=== PATIENT | female | born 1955 | race Caucasian/White ===

== ENCOUNTER 2020-12-25 07:40 | Outpatient (REF) | payer OTHER, SELFPAY ==
[2020-12-25 11:52] LABS: Anion Gap 13 (12-20); Blood Urea Nitrogen 12 mg/dL (9-16); Calcium 9.1 mg/dL (8.4-10.2); Carbon Dioxide 29 mmol/L (22-29); Chloride 106 mmol/L (96-108); Cholesterol 158 mg/dL; Estimated Glomerular Filt Rate > 60; Glucose Fasting 101 mg/dL (60-99); HDL Cholesterol 49 mg/dL; LDL Cholesterol Calculated 93 mg/dl; Potassium 4.2 mmol/L (3.3-5.1); Sodium 144 mmol/L (135-145); Triglycerides 81 mg/dL
== END 2020-12-25 07:41 | disposition home or self-care (01) ==
LOC: HO.HMGCLDS 07:40
PROVIDERS: PCP Internal Medicine; Visit Provider Internal Medicine
DX: I10 Essential (primary) hypertension (principal); E78.5 Hyperlipidemia, unspecified; Z78.0 Asymptomatic menopausal state
CPT/HCPCS: 36415; 80048; 80061; 82306

== ENCOUNTER 2021-02-13 12:05 | Day surgery (SDC) | payer OTHER, SELFPAY ==
--- NOTE | 2021-01-16 08:34 | ECG_ITS ---
Test Reason : ZO.818 Blood Pressure : / mmHG Vent. Rate : 058 BPM Atrial Rate : 058 BPM P-R Int : 148 ms QRS Dur : 096 ms QT Int : 440 ms P-R-T Axes : 007 -04 028 degrees QTc Int : 431 ms Sinus bradycardia Otherwise normal ECG No previous ECGs available Referred By: Sarah Lopze Electronically Signed By:YRN LUCAS
[2021-01-16 09:43] LABS: MANUAL DIFF FLAG NO
[2021-01-16 09:50] LABS: Basophils Percent Auto 0.6 % (0-2); Eosinophils Absolute Auto 0.2 X10*3/uL (0.0-0.4); Eosinophils Percent Auto 6.7 % (0-4); Hematocrit 38.1 % (37-47); Hemoglobin 12.4 g/dl (12.0-16.0); Imm Gran Abs Auto 0.01 X10*3/uL (0.00-0.03); Imm Gran Pct Auto 0.3 % (0.0-0.4); Lymphocytes Percent Auto 29.2 % (20-40); Mean Corpuscular HGB Conc 32.5 g/dl (31.0-35.0); Mean Corpuscular Hemoglobin 30.2 pg (27.0-33.0); Mean Corpuscular Volume 92.9 fL (80-98); Mean Platelet Volume 10.5 fL (9.4-12.3); Monocytes Absolute Auto 0.6 X10*3/uL (0.1-1.2); Monocytes Percent Auto 18.1 % (2-11); Neutrophils Absolute Auto 1.6 X10*3/uL (2.0-8.3); Neutrophils Percent Auto 45.1 % (45-73); Platelet Count 270 X10*3/uL (160-400); Red Cell Distribution Width 12.3 % (11.0-16.0); White Blood Count 3.4 X10*3/uL (4.8-10.8)
[2021-01-16 10:05] LABS: Anion Gap 14 (12-20); Blood Urea Nitrogen 10 mg/dL (9-16); Calcium 9.1 mg/dL (8.4-10.2); Carbon Dioxide 28 mmol/L (22-29); Chloride 105 mmol/L (96-108); Estimated Glomerular Filt Rate 59; Glucose Fasting 87 mg/dL (60-99); Potassium 4.2 mmol/L (3.3-5.1); Sodium 143 mmol/L (135-145)
--- NOTE | 2021-01-22 09:04 | HP_ITS ---
DATE OF SERVICE: 02/13/2021 DATE OF PROPOSED SURGERY: February 13, 2021. PREOPERATIVE DIAGNOSES: 1. Hallux abductovalgus, right foot. 2. Hammertoe, right second toe. 3. Tailor bunion, right 5th metatarsal. 4. Exostosis, lateral right hallux IP joint. 5. Contracture, right 2nd metatarsophalangeal joint. PLANNED PROCEDURES: 1. Gabino bunionectomy, right foot with open reduction and internal fixation. 2. Hammertoe repair, right second toe with possible K-wire fixation. 3. Partial metatarsal head resection, right 5th metatarsal. 4. Condylectomy, right hallux IP joint. 5. Extensor tenotomy and capsulotomy, right 2nd metatarsophalangeal joint. PLANNED ANESTHESIA: Either MAC or general anesthesia. CHIEF COMPLAINT AND HISTORY OF PRESENT ILLNESS: Dina Steele is a 65-year-old female, who relates history of painful bunion deformities of both great toe joint and small toe joint as well as hammertoe of 2nd toe on both feet, the right foot is more advanced than the left. She relates her painful condition has been present over the past several years. Her pain is aggravated by shoe gear and walking activity. Conservative treatment consisting of altered shoe gear as well as orthotics and accommodative padding has proven ineffective and the patient is now requesting surgical treatment. PAST MEDICAL HISTORY: Remarkable for depression, arthritis. CURRENT MEDICATIONS: The patient takes Abilify, Lamictal, Lexapro, meloxicam, Wellbutrin, hydrochlorothiazide. ALLERGIES: THE PATIENT HAS NEGATIVE REACTION TO BOTH DOXYCYCLINE AND DEMEROL. FAMILY HISTORY: Significant for arthritis. SOCIAL HISTORY: The patient denies smoking, relates rare alcohol consumption and drinks more than 4 cups coffee per day. The patient denies use of any recreational drugs. PHYSICAL EXAMINATION: PODIATRIC PHYSICAL EXAMINATION: VASCULAR EXAM: The patient displays +2/4 pulses. DP and PT arteries bilateral with normal cap refill time noted bilateral feet. DERMATOLOGIC EXAM: The patient has intact skin. The patient does have a keratosis of the medial aspect of the right second toe proximal interphalangeal joint. ORTHOPEDIC EXAM: Reveals excess pronation, bilateral feet, bunion deformities involving both the first metatarsophalangeal joint and 5th metatarsophalangeal joint, bilateral feet. The patient also displays hammertoe contracture, bilateral, the right second toe being the more advanced with medial subluxation at the level of the metatarsophalangeal joint, 2nd metatarsal due to contracture. NEUROLOGIC EXAM: Reveals intact sensation. The patient was seen most recently in my office on January 21, 2021. The patient has been described of all potential risks and complications and is compliant with her planned right foot surgery. Preoperative informed consent has been obtained from the patient. Preoperative medical clearance will be provided by her primary care physician, Dr. Lopez. MEGGAN Lawrence/REI / [id number]
[2021-02-10 14:00] VITALS: BMI 24.5
--- NOTE | 2021-02-11 10:45 | P.CONAN_ITS ---
Documented by User: Sri Loaiza 02/11/21 10:47 HPI - Anesthesia Eval Consult details Narrative: 65yo F for R Foot Surgery PCP cleared [facility] Active Problems Active Problems: All Active Problems (Updated 02/10/21 @ 14:02 by Zayra Avila) Consumes a vegan diet (Acute) Osteoarthritis, knee (Acute) Bipolar disorder with depression (Acute) Menopause (Acute) Hyperlipidemia (Acute) Past Medical History Medical History Bipolar disorder with depression Consumes a vegan diet COVID-19 vaccine administered Dysfunctional uterine bleeding Hyperlipidemia Impaired fasting glucose Menopause Nephrolithiasis Osteoarthritis, knee Positive serology for Erlichiosis Tear of lateral meniscus of left knee Family History Family History Father No problems noted. Mother Alzheimer disease Maternal Grandmother Alzheimer disease Paternal Grandmother Stroke Brother Hyperlipemia Depression FH: mental illness Surgical History Surgical History H/O colonoscopy H/O right knee surgery Hx of total knee arthroplasty Hx of ventral hernia repair Status post shoulder surgery Social History Social History Are you a primary anesthesiologist and critical care to a significant other at home: No Do you presently have visiting nurse or other home services: No Smoking Status: Never smoker Use of substances other than those prescribed or required for medical reasons: No Have you been hit, kicked, punched, or otherwise hurt by someone within the past year? If so, by whom?: No Advance Directives: Yes Advance Directives Information Provided: Yes Advance Directives on File: Yes Advance Directives Date on File: 07/09/20 Recently lost weight without trying: No Eating poorly because of decreased appetite: No Nutrition Risks: No Nutritional Risk Poor oral hygiene: No Meds Allergies Allergy/AdvReac Type Severity Reaction Status Date / Time doxycycline Allergy Severe Nausea and Verified 02/10/21 13:58 Vomiting meperidine AdvReac Severe vomiting Verified 02/10/21 13:58 Home Medications Medication Instructions Recorded Confirmed Last Taken Type docusate sodium 100 mg tablet 100 mg PO BID tab 07/09/20 02/10/21 Unknown History multivitamin 1 tab PO DAILY 07/09/20 02/10/21 Unknown History aripiprazole 10 mg tablet 5 mg PO DAILY tab 01/01/21 02/10/21 Unknown History bupropion HCl 150 mg 24 hr tablet, 450 mg PO QAM 01/01/21 02/10/21 Unknown History extended release cholecalciferol (vitamin D3) 50 50 mcg PO DAILY 01/01/21 02/10/21 Unknown History mcg (2,000 unit) capsule escitalopram oxalate 20 mg tablet See Rx Instructions PO DAILY 01/01/21 02/10/21 Unknown History lamotrigine 200 mg tablet 200 mg PO QAM tab 01/01/21 02/10/21 Unknown History omega-3 fatty acids 500 mg capsule 500 mg PO DAILY 01/01/21 02/10/21 Unknown History vitamin B complex 1 tab PO DAILY 01/01/21 02/10/21 Unknown History lamotrigine 100 mg PO QPM 02/10/21 02/10/21 Unknown History Exam Exam Date and Time: February 11, 2021 1045 Height,Weight and Vital Signs: Height 5 ft 4.5 in Weight 65.771 kg Pertinent Lab Results Pertinent Lab Results: Laboratory Tests 01/16/21 01/16/21 08:35 08:35 WBC 3.4 L RBC 4.10 L Hgb 12.4 Hct 38.1 MCV 92.9 MCH 30.2 MCHC 32.5 RDW 12.3 Plt Count 270 MPV 10.5 Immature Gran % (Auto) 0.3 Neut % (Auto) 45.1 Lymph % (Auto) 29.2 [place] % (Auto) 18.1 H Eos % (Auto) 6.7 H Baso % (Auto) 0.6 Lymph # (Auto) 1.0 L [place] # (Auto) 0.6 Eos # (Auto) 0.2 Baso # (Auto) 0.0 Abs Immat Gran (auto) 0.01 Absolute Neuts (auto) 1.6 L Absolute Nucleated RBC 0.000 Nucleated RBC % (auto) 0.0 Sodium 143 Potassium 4.2 Chloride 105 Carbon Dioxide 28 Anion Gap 14 BUN 10 Creatinine 0.95 Estim Creat Clear Calc TNP Estimated GFR 59 Fasting Glucose 87 Calcium 9.1 Narrative Narrative: EKG 01/2021 Vent. Rate : 058 BPM Atrial Rate : 058 BPM P-R Int : 148 ms QRS Dur : 096 ms QT Int : 440 ms P-R-T Axes : 007 -04 028 degrees QTc Int : 431 ms Sinus bradycardia Otherwise normal ECG No previous ECGs available Assessment and Plan Assessment Anesthesia Assessment: Chart Reviewed Documented by User: Nimisha Stearns 02/13/21 13:17 PMF Past Medical History Medical History Bipolar disorder with depression Consumes a vegan diet COVID-19 vaccine administered Dysfunctional uterine bleeding Hyperlipidemia Impaired fasting glucose Menopause Nephrolithiasis Osteoarthritis, knee Positive serology for Erlichiosis Tear of lateral meniscus of left knee Family History Family History Father No problems noted. Mother Alzheimer disease Maternal Grandmother Alzheimer disease Paternal Grandmother Stroke Brother Hyperlipemia Depression FH: mental illness Surgical History Surgical History H/O colonoscopy H/O right knee surgery Hx of total knee arthroplasty Hx of ventral hernia repair Status post shoulder surgery Social History Social History Are you a primary anesthesiologist and critical care to a significant other at home: No Do you presently have visiting nurse or other home services: No Smoking Status: Never smoker Use of substances other than those prescribed or required for medical reasons: No Have you been hit, kicked, punched, or otherwise hurt by someone within the past year? If so, by whom?: No Advance Directives: Yes Advance Directives Information Provided: Yes Advance Directives on File: Yes Advance Directives Date on File: 07/09/20 Recently lost weight without trying: No Eating poorly because of decreased appetite: No Nutrition Risks: No Nutritional Risk Poor oral hygiene: No Meds Allergies Allergy/AdvReac Type Severity Reaction Status Date / Time doxycycline Allergy Severe Nausea and Verified 02/10/21 13:58 Vomiting meperidine AdvReac Severe vomiting Verified 02/10/21 13:58 Home Medications Medication Instructions Recorded Confirmed Last Taken Type docusate sodium 100 mg tablet 100 mg PO BID tab 07/09/20 02/10/21 Unknown History multivitamin 1 tab PO DAILY 07/09/20 02/10/21 Unknown History aripiprazole 10 mg tablet 5 mg PO DAILY tab 01/01/21 02/10/21 Unknown History bupropion HCl 150 mg 24 hr tablet, 450 mg PO QAM 01/01/21 02/10/21 Unknown History extended release cholecalciferol (vitamin D3) 50 50 mcg PO DAILY 01/01/21 02/10/21 Unknown History mcg (2,000 unit) capsule escitalopram oxalate 20 mg tablet See Rx Instructions PO DAILY 01/01/21 02/10/21 Unknown History lamotrigine 200 mg tablet 200 mg PO QAM tab 01/01/21 02/10/21 Unknown History omega-3 fatty acids 500 mg capsule 500 mg PO DAILY 01/01/21 02/10/21 Unknown History vitamin B complex 1 tab PO DAILY 01/01/21 02/10/21 Unknown History lamotrigine 100 mg PO QPM 02/10/21 02/10/21 Unknown History Exam Airway Mallampati Class: I TM Dist: >3cm Neck ROM: Full Heart: RRR Lungs: CTA Assessment and Plan Assessment Anesthesia Assessment: Anesthesia Plan Discussed and Chart Reviewed Final Anesthetic Review NPO: Yes ASA Class: II Final Preanesthetic Review: Meds/Allgs Chart Reviewed, Consent Obtained/Reviewed and Anes Risks/Benef Reviewed Patient Risk: Low Procedure Risk: Low Anesthetic Plan Anesthetic Plan: MAC: Disposition: Standard PACU
[2021-02-13] VITALS (7 sets, daily range): BP systolic 115–148; BP diastolic 32–86; PULSE 69–81; RESP 16–19; TEMP 36.1–36.6; O2SAT 97–100
--- NOTE | ~2021-02-13 | FL_ITS ---
EXAMINATION: XR FLUOROSCOPY WITH IMAGES CLINICAL INFORMATION: Bunion. COMPARISON: None. TECHNIQUE: Fluoroscopy performed by Luis Terrazas DPM. Fluoroscopy time: 3 seconds. Total dose: 2547 uGycm2 Images: 1 FINDINGS: Patient is status post osteotomy distal shaft first metatarsal, fixed with 2 screws. There is a metallic pin along long axis second toe, tip overlying 2nd metatarsal head. FL/FL guidance in OR IMPRESSION: Fluoroscopy for podiatric surgery.
[2021-02-13] MEDS: Lactated Ringers 1,000 ML 100 ML IVCONT (12:55)
--- NOTE | 2021-02-13 13:17 | MHC.SHP ---
Pre-Procedural Eval Section B Chief Complaint: hallux,hammer toe,bunionette Allergies: Allergies Allergy/AdvReac Type Severity Reaction Status Date / Time doxycycline Allergy Severe Nausea and Verified 02/10/21 13:58 Vomiting meperidine AdvReac Severe vomiting Verified 02/10/21 13:58 Plan I have reviewed the history and physical and performed a pertinent physical examination on my patient. No changes have occurred unless specified.
--- NOTE | 2021-02-13 14:56 | PM.PROC ---
Brief Operative Note Date of procedure: 02/13/21 Pre-op diagnosis: hallux valgus, hammertoe 2nd, tailor bunion, exostosis hallux, sublux right Post-op diagnosis: same Procedure: marco bunionectomy with orif right, hammertoe repair right 2nd, condylectomy right hallux ipj, partial metatarsal head resection 5th and tenotomy and capsulotomy right 2nd mtpj Anesthesia: GLMA Surgeon: Luis Terrazas Commercial Sales Representative: Jolene Mariscal Estimated blood loss (mL): 4.0 Condition: stable Disposition: PACU
--- NOTE | 2021-02-13 16:15 | PC.NURSE ---
1600 AWAKE ALERT PREP FOR DC MONITORS AND IVF DCD ASST W LOWER HALF CLOTHING CHANGE, PT FIT W MENS LARGE ORTHO SHOE, ASST OOB TO WC USING WALKER DDEMONSTRATES GOOD AMB AND TECHNIQUE PARTIAL WEIGHT BEAR R, TO PT COMPLETED CLOTHING CHANGE TO BE DCD FROM PACU
--- NOTE | 2021-02-13 17:40 | OP_ITS ---
SURGEON: Luis Terrazas DPM PREOPERATIVE DIAGNOSIS: POSTOPERATIVE DIAGNOSIS: PROCEDURE PERFORMED: ESTIMATED BLOOD LOSS: COMPLICATIONS: ANESTHESIA: Consisted of local administration of a total of 24 mL of an equal mix of 2% lidocaine with epinephrine 1:100,000 and 0.5% Marcaine plain. Intravenous sedation was provided by the anesthesia department and prior to the start of procedure due to excessive patient movement, the patient was converted to general endotracheal anesthesia. ANESTHESIOLOGIST: Dr. Anti.Dr. Stearns. ASSISTANTS: Dr. Mariscal. SPECIMENS: PREOPERATIVE DIAGNOSES: 1. Hallux abductovalgus, right foot. 2. Hammertoe, right second toe. 3. Tailor bunion, right 5th metatarsal. 4. Exostosis, lateral right hallux IP joint. 5. Subluxation/contracture, right 2nd metatarsophalangeal joint. POSTOPERATIVE DIAGNOSES: 1. Hallux abductovalgus, right foot. 2. Hammertoe, right second toe. 3. Tailor bunion, right 5th metatarsal. 4. Exostosis, lateral right hallux IP joint. 5. Subluxation/contracture, right 2nd metatarsophalangeal joint. PROCEDURES PERFORMED: 1. Bernadine bunionectomy with open reduction and internal fixation of right foot. 2. Hammertoe repair, right second toe with 0.054-inch K-wire fixation. 3. Partial metatarsal head resection, right 5th metatarsal. 4. Condylectomy, right hallux interphalangeal joint. 5. Extensor tenotomy and capsulotomy of the right 2nd metatarsophalangeal joint. INTRODUCTION: The patient was brought to the operating room, placed on the operative table in the supine position. After having been suitably anesthetized with local infiltrative anesthesia, the right lower extremity was then prepped and draped in the usual sterile manner. Please note that prior to start of the procedures, the right foot was exsanguinated utilizing Esmarch bandage and right ankle tourniquet was inflated to 250 mmHg pressure for the duration of the procedures. BERNADINE BUNIONECTOMY WITH OPEN REDUCTION AND INTERNAL FIXATION, RIGHT FOOT. Attention was directed to the dorsum of the right first metatarsophalangeal joint, where an incision approximately 7 cm in length was effected, centered over the dorsum of the right first metatarsophalangeal joint. The incision was deepened in same plane and hemostasis was acquired as necessary. The skin margins were underscored and retracted. A dorsal linear capsule incision was then effected and the capsule and periosteum were underscored and retracted. The hypertrophic medial eminence of the first metatarsal head was resected. The first intermetatarsal space was exposed via blunt and sharp dissection and a lateral capsulotomy and adductor tenotomy performed via sharp dissection. Attention was directed back to the medial aspect of first metatarsal head, where a modified V osteotomy was carried out with the short arm being placed plantarly, the long arm being placed dorsally. The capital fragment was then shifted laterally. Once the osteotomy was complete and impacted upon the bone in the correct position and then fixated utilizing 2 of the Lamont cannulated screws each measuring 3.0 mm in diameter and 17 mm in length. The 2-screw fixation was orientated perpendicular to the dorsal wing of the osteotomy and was found to give excellent interfragmental compression of the osteotomy. The redundant bone was resected utilizing sagittal saw. The wound was irrigated. The capsule was closed with 3-0 Vicryl. One half of 3 x 4 cm AmnioFix was placed inside the capsule during closure. The subcutaneous tissue was closed with 4-0 Maxon. One quarter of the AmnioFix was placed in the subcutaneous tissue during closure. The Section ZipLine sterile closure was then applied over the midline of the incision. CONDYLECTOMY, RIGHT HALLUX INTERPHALANGEAL JOINT. Attention was now directed to the dorsal lateral aspect of the right hallux interphalangeal joint, where an incision mildly curvilinear was effected just dorsal to exostosis at the base of the distal phalanx lateral aspect of the great toe. Incision was carried down to bone and the capsule and periosteum were underscored utilizing a sagittal saw, the hypertrophic lateral eminence of the base of the distal phalanx was resected. Then utilizing a power drill, the remaining bone was rasped smooth. The wound was irrigated. Skin was closed with 4-0 nylon. PARTIAL METATARSAL HEAD RESECTION, RIGHT 5TH METATARSAL. Attention was now directed to the dorsum of the right 5th metatarsophalangeal joint, where an incision approximately 4 cm in length was effected from the distal shaft up to and just beyond the 5th metatarsophalangeal joint. Incision was deepened in the same plane. Hemostasis was acquired. Dorsal linear capsule incision was then effected. Capsule and periosteum were underscored and retracted. The hypertrophic lateral eminence of the 5th metatarsal head was resected utilizing sagittal saw. The wound was irrigated. The capsule was closed with 3-0 Vicryl and the last portion of AmnioFix was placed inside the capsule during closure. The skin margins were closed with 4-0 nylon. HAMMERTOE REPAIR OF RIGHT SECOND TOE WITH A CAPSULOTOMY RIGHT 2ND METATARSOPHALANGEAL JOINT. Attention was directed to the dorsum of the right second toe, where an incision was effected from the distal shaft and head of the 2nd metatarsal up to just distal to the proximal interphalangeal joint. The incision was deepened and hemostasis was acquired. Skin margins were underscored and retracted. A transverse incision was effected through the extensor tendon complex at the level of the proximal interphalangeal joint. The extensor tendon was underscored and retracted. The hypertrophic head of the proximal phalanx was excised utilizing sagittal saw. Attention was now directed to the dorsal and medial aspect of the 2nd metatarsophalangeal joint, where a dorsal and medial capsulotomy was performed via sharp dissection. A McGlamry elevator was introduced to release the medial subluxation of the right 2nd metatarsophalangeal joint. A 0.054-inch K-wire was then driven through the phalanges and then into the metatarsal head. Utilizing mini C-arm fluoroscopic visualization, the excess K-wire was bent, cut, and capped. Extensor tendon was caught to maintain as well as capsule closed with 3-0 Vicryl. Skin margins were closed with 4-0 nylon. CONCLUSION: At the conclusion of these procedures, the operative sites were injected with a total of 5 mL of Marcaine 0.5% plain and 1 mL of dexamethasone phosphate. Sterile Betadine-soaked gauze as well as a 2-inch Conform, sterile Kerlix fluffs, and 4-inch Conform were applied to the right lower extremity. The right ankle tourniquet was deflated and normal blood flow was reestablished to the right lower extremity. The patient tolerated the surgery and anesthesia well and left the operating room via cart to the recovery room with vital signs stable. FINAL DISPOSITION: The patient is discharged home with instructions for self-care and include the followin. To keep the dressings dry, clean, and intact. 2. To keep the right leg elevated with ice above the ankle. 3. Take all medications as prescribed. 4. To limit activity to minimum. 5. To always use surgical shoe and walker when ambulating, partial weightbearing, or nonweightbearing the right lower extremity. 6. The patient has prescriptions for Motrin 800 mg total number 90, one p.o. t.i.d. p.c. The patient will also be taking Tylenol in addition to the Motrin p.r.n. pain and gabapentin 300 mg total number of 10, sig 1 p.o. daily at bedtime. MEGGAN Lawrence/REI / [id number]
== END 2021-02-13 16:20 ==
LOC: HO.SSS 12:06
PROVIDERS: PCP Internal Medicine; Visit Provider Podiatrist
PROC: (CPT 28292; principal; 2021-02-13 13:50)
PROC: (CPT 28285; 2021-02-13 13:50)
PROC: (CPT 21050; 2021-02-13 13:50)
DX: M20.11 Hallux valgus (acquired), right foot (principal); M21.621 Bunionette of right foot; M20.41 Other hammer toe(s) (acquired), right foot; M89.8X7 Other specified disorders of bone, ankle and foot; I10 Essential (primary) hypertension
CPT/HCPCS: 28296; 28285; 28110; 36415; 80048; 85025; 88304; 88311; 93005; C1713; J0690; J1100; J2250; J2405; J3010; J3590

== ENCOUNTER 2021-08-13 07:10 | Outpatient (REF) | payer OTHER, SELFPAY ==
[2021-08-13 11:49] LABS: Estimated Average Glucose 103 mg/dL; Hemoglobin A1c % 5.2 %
[2021-08-13 12:11] LABS: Vitamin D 25-OH Total 65.7 ng/mL (>30)
[2021-08-13 12:15] LABS: Vitamin B12 1422 pg/mL (200-900)
[2021-08-13 12:20] LABS: Alanine Aminotransferase 24 U/L (0-31); Albumin Level 4.1 g/dL (3.5-5.0); Alkaline Phosphatase 75 U/L (39-117); Anion Gap 12 (12-20); Aspartate Amino Transferase 24 U/L (5-31); Bilirubin Total 0.3 mg/dL (0.0-1.0); Blood Urea Nitrogen 11 mg/dL (9-16); Calcium 9.4 mg/dL (8.4-10.2); Carbon Dioxide 28 mmol/L (22-29); Chloride 106 mmol/L (96-108); Cholesterol 181 mg/dL; Estimated Glomerular Filt Rate > 60; Glucose Fasting 97 mg/dL (60-99); HDL Cholesterol 59 mg/dL; LDL Cholesterol Calculated 104 mg/dl; Potassium 4.1 mmol/L (3.3-5.1); Sodium 142 mmol/L (135-145); Total Protein 6.7 g/dL (6.5-8.0); Triglycerides 94 mg/dL
== END 2021-08-13 07:11 | disposition home or self-care (01) ==
LOC: HO.HMGCLDS 07:10
PROVIDERS: PCP Internal Medicine; Visit Provider Psychiatry & Neurology Psychiatry
DX: F31.9 Bipolar disorder, unspecified (principal)
CPT/HCPCS: 36415; 80053; 80061; 82306; 82607; 83036

== ENCOUNTER 2022-08-17 07:46 | Outpatient (REF) | payer OTHER, SELFPAY ==
[2022-08-17 11:29] LABS: MANUAL DIFF FLAG NO
[2022-08-17 11:43] LABS: Eosinophils Absolute Auto 0.1 X10*3/uL (0.0-0.4); Eosinophils Percent Auto 2.3 % (0-4); Hematocrit 38.4 % (37.0-47.0); Hemoglobin 12.6 g/dl (12.0-16.0); Imm Gran Abs Auto 0.01 X10*3/uL (0.00-0.03); Imm Gran Pct Auto 0.3 % (0.0-0.4); Lymphocytes Absolute Auto 1.2 X10*3/uL (1.2-4.9); Lymphocytes Percent Auto 30.9 % (20-40); Mean Corpuscular HGB Conc 32.8 g/dl (31.0-35.0); Mean Corpuscular Hemoglobin 30.6 pg (27.0-33.0); Mean Corpuscular Volume 93.2 fL (80.0-98.0); Mean Platelet Volume 10.6 fL (9.4-12.3); Monocytes Absolute Auto 0.5 X10*3/uL (0.1-1.2); Monocytes Percent Auto 12.2 % (2-11); Neutrophils Absolute Auto 2.1 x10*3/uL (2.0-8.3); Neutrophils Percent Auto 53.3 % (45-73); Platelet Count 311 X10*3/uL (160-400); Red Blood Count 4.12 X10*6/uL (4.20-5.50); Red Cell Distribution Width 12.3 % (11.0-16.0); White Blood Count 3.9 X10*3/uL (4.8-10.8)
[2022-08-17 11:50] LABS: Estimated Average Glucose 100 mg/dL; Hemoglobin A1C 103.9966 umol/L; Hemoglobin A1c % 5.1 %
[2022-08-17 12:24] LABS: Thyroid Stimulating Hormone 0.73 uIU/mL (0.32-4.0)
[2022-08-17 12:34] LABS: Alanine Aminotransferase 12 U/L (0-31); Albumin Level 4.3 g/dL (3.5-5.0); Alkaline Phosphatase 74 U/L (39-117); Anion Gap 14 (12-20); Aspartate Amino Transferase 15 U/L (5-31); Bilirubin Total 0.4 mg/dL (0.0-1.0); Blood Urea Nitrogen 13 mg/dL (9-16); Calcium 9.4 mg/dL (8.4-10.2); Carbon Dioxide 28 mmol/L (22-29); Chloride 106 mmol/L (96-108); Cholesterol 200 mg/dL; Estimated Glomerular Filt Rate 53; Glucose Fasting 95 mg/dL (60-99); HDL Cholesterol 61 mg/dL; LDL Cholesterol Calculated 126 mg/dl; Potassium 4.1 mmol/L (3.3-5.1); Sodium 144 mmol/L (135-145); Total Protein 6.9 g/dL (6.5-8.0); Triglycerides 65 mg/dL
== END 2022-08-17 07:47 | disposition home or self-care (01) ==
LOC: HO.HMGCLDS 07:46
PROVIDERS: PCP Internal Medicine; Visit Provider Psychiatry & Neurology Psychiatry
DX: F31.32 Bipolar disorder, current episode depressed, moderate (principal)
CPT/HCPCS: 36415; 80053; 80061; 82947; 83036; 84443; 85025

== ENCOUNTER 2023-09-23 07:22 | Outpatient (REF) | payer MEDICARE, OTHER, SELFPAY ==
[2023-09-23 12:08] LABS: Alanine Aminotransferase 12 U/L (0-31); Anion Gap 11 (12-20); Aspartate Amino Transferase 18 U/L (5-31); Blood Urea Nitrogen 15 mg/dL (9-16); Carbon Dioxide 27 mmol/L (22-29); Chloride 107 mmol/L (96-108); Cholesterol 233 mg/dL (<200); Estimated Glomerular Filt Rate 60; Glucose Fasting 92 mg/dL (60-99); HDL Cholesterol 69 mg/dL (>40); LDL Cholesterol Calculated 151 mg/dL (<100); Potassium 3.8 mmol/L (3.3-5.1); Sodium 141 mmol/L (135-145); Triglycerides 65 mg/dL (<150)
[2023-09-23 12:39] LABS: Folate 13.7 ng/mL (> or = 4.0); Vitamin B12 407 pg/mL (200-900)
== END 2023-09-23 07:23 | disposition home or self-care (01) ==
LOC: HO.HMGCLDS 07:22
PROVIDERS: PCP Internal Medicine; Visit Provider Internal Medicine
DX: Z00.01 Encounter for general adult medical examination with abnormal findings (principal); R74.8 Abnormal levels of other serum enzymes; F31.9 Bipolar disorder, unspecified; Z78.0 Asymptomatic menopausal state; R73.01 Impaired fasting glucose; Z78.9 Other specified health status
CPT/HCPCS: 36415; 80048; 80061; 82306; 82607; 82746; 84450; 84460

== ENCOUNTER 2023-11-02 10:25 | Outpatient (AMB) | payer MEDICARE, OTHER, SELFPAY ==
--- NOTE | 2023-11-02 10:32 | AM.OFFWIN_ITS ---
Intake Vital Signs 11/02/23 10:36 Height 5 ft 5 in Weight 68.946 kg BMI 25.3 BP 122/70 Blood Pressure Location Rt brachial Position Sitting Pulse 70 Pulse Source Pulse Oximeter Temp 98.6 F Temp Source Oral Pulse Oximetry (%) 97 Oxygen Delivery Method Room Air Intake Visit Reasons: EST/dizziness(lobby masked) Intake Note: Pt is here c/o dizziness for over one week. Pt states no falls or injuries prior to feeling vertigo. Patient Tobacco Use Status: Never used Tobacco Allergies doxycycline Allergy (Severe, Verified 11/02/23 10:39) Nausea and Vomiting meperidine Adverse Reaction (Severe, Verified 11/02/23 10:39) vomiting Do you need a note to return to daycare/school/sports/work: No HPI HPI Comments History of Present Illness Details 68-year-old female history of tardive dy skinesia, osteopenia, impaired fasting glucose, bipolar, menopause, hyperlipidemia presenting for evaluation of dizziness for the past week or so worsening. Patient was recently taking Austedo and stopped it about a week or two ago psychiatrist aware. Patient reports shes not dizzy right now and dizziness mostly occurs with positional changes. She reports she stands up quickly or if she lays down in bed too quickly she gets dizziness. Denies headache, vision changes, weakness, nausea, vomiting, diarrhea, abdominal pain, chest pain shortness of breath Physical exam benign. NIH stroke scale 0. Cerebellar function intact This is likely BPPV versus orthostatic dizziness versus vertigo. Unlikely many years. This also could be side effect of discontinuation of the medication. Unlikely stroke, posterior stroke, intracranial hemorrhage. No signs of neurological deficits Plan at this time meclizine. Will reach out to patient's psychiatric provider to inform her of these changes and to see if patient can follow-up with her for med adjustment. In Educated patient on diagnosis and treatment plan, answered all question, patient verbalizes understanding. At this time patient will be discharged home, advised to return with new or worsening symptoms. Educated on worrisome signs and symptoms and when to return. At this time I feel comfortable discharge home. [facility] Medical History Tardive dyskinesia Nasal bone fracture Deviated nasal septum Trochanteric bursitis, right hip Osteopenia of right femoral neck COVID-19 vaccine administered Consumes a vegan diet Positive serology for Erlichiosis Impaired fasting glucose Tear of lateral meniscus of left knee Dysfunctional uterine bleeding Osteoarthritis, knee Bipolar disorder with depression Nephrolithiasis Menopause Hyperlipidemia Surgical History Status post arthroscopy of right shoulder Hx of ventral hernia repair H/O colonoscopy Status post shoulder surgery Hx of total knee arthroplasty H/O right knee surgery Family History Father No problems noted. Mother Alzheimer disease Maternal Grandmother Alzheimer disease Paternal Grandmother Stroke Brother Hyperlipemia Depression FH: mental illness Social History Are you a primary ambulatory care coordinator to a significant other at home: No Do you presently have visiting nurse or other home services: No Patient Tobacco Use Status: Never used Tobacco e-Cigarette/Vaping Use: Never Used Advance Directives Date on File: 07/09/20 service: No Current occupational status: retired Cognitive needs: No Vision needs: Yes Review of Systems Const All systems reviewed & are unremarkable except as noted in HPI and below Physical Exam Vital Signs: No signs stable Appearance: Alert.? Oriented X3.? No acute distress.? Head: Normocephalic, atraumatic, no step-offs or deformities Eyes: Pupils equal, round and reactive to light. CVS: Normal heart rate and rhythm.? Pulses normal.? Respiratory: No respiratory distress.? Breath sounds normal.? Skin: Skin warm and dry.? Normal skin color.? Normal skin turgor.? Extremities: No lower extremity edema.? No calf ttp. 5/5 strength to bilateral upper and lower extremities Back: No midline tenderness, no C-spine tenderness, full range of motion, no CVA tenderness bilaterally Neuro: Oriented X 3.? No motor deficit.? No sensory deficit. CN 2-12 intact . Normal [id number], [id number] steady tandem gait normal coordination negative Romberg and pronator drift Assessment & Plan Assessment & Plan (1) Vertigo: Code(s): R42 - Dizziness and giddiness Plan Take your medications as prescribed. If you were prescribed antibiotics today, it is important that you take your medication to their entirety, do not skip any doses, do not finish them early. Follow-up with your primary care provider this week. Return to the emergency department with new or worsening symptoms. Such as fevers, chills, chest pain, shortness of breath, nausea, vomiting, dizziness, headache, vision changes, lethargy In case of emergency call 911 Slow movements please. Do not change position quickly. Medications: New meclizine 25 mg PO BID PRN 30 tabs 0RF dizziness Coding Level of Care Code Est Pt Level 3 (72498) Diagnoses Vertigo R42
[2023-11-02 10:36] VITALS: BP 122/70; PULSE 70; TEMP 37; O2SAT 97; BMI 25.3
== END 2023-11-02 11:32 | disposition home or self-care (01) ==
PROVIDERS: PCP Internal Medicine; Visit Provider Physician Assistant
DX: R42 Dizziness and giddiness (principal); F31.9 Bipolar disorder, unspecified
CPT/HCPCS: 99213

== ENCOUNTER 2024-03-02 09:05 | Outpatient (REF) | payer MEDICARE, OTHER, SELFPAY ==
[2024-03-02 11:03] LABS: Alanine Aminotransferase 18 U/L (0-31); Aspartate Amino Transferase 19 U/L (5-31); Cholesterol 212 mg/dL (<200); Glucose Fasting 91 mg/dL (60-99); HDL Cholesterol 66 mg/dL (>40); LDL Cholesterol Calculated 134 mg/dL (<100); Triglycerides 63 mg/dL (<150)
[2024-03-02 11:36] LABS: Folate 13.9 ng/mL (> or = 4.0); Vitamin B12 555 pg/mL (200-900)
== END 2024-03-02 09:06 | disposition home or self-care (01) ==
LOC: HO.HMGCLDS 09:05
PROVIDERS: PCP Internal Medicine; Visit Provider Internal Medicine
DX: E78.00 Pure hypercholesterolemia, unspecified (principal); Z78.0 Asymptomatic menopausal state; R73.01 Impaired fasting glucose; M85.851 Other specified disorders of bone density and structure, right thigh; Z78.9 Other specified health status
CPT/HCPCS: 36415; 80061; 82306; 82607; 82746; 82947; 84450; 84460

== ENCOUNTER 2024-03-06 08:42 | Outpatient (AMB) | payer MEDICARE, OTHER, SELFPAY ==
--- NOTE | 2024-03-06 08:32 | MHC.PC.OV ---
Vital Signs 03/06/24 08:45 Height 5 ft 5 in Weight 155 lb 2 oz BMI 25.8 BP 135/80 Blood Pressure Location Lt brachial Position Sitting Pulse 66 Pulse Source Pulse Oximeter Pulse Oximetry (%) 97 Oxygen Delivery Method Room Air Intake Visit Reasons: PE/secondary covers annual Intake Note: Pt is here today for her Annual PE Last mammogram 07/27/22 Last Bone density 05/30/20 Last colonoscopy 09/25/20 Last flu shot 06/23/21 Allergies doxycycline Allergy (Severe, Verified 08/02/24 23:10) Nausea and Vomiting meperidine Adverse Reaction (Severe, Verified 08/02/24 23:10) vomiting tramadol Adverse Reaction (Verified 08/02/24 23:10) Hallucinations Medication List - Last Reconciled 03/06/24 by Sarah Lopez MD aripiprazole 5 mg PO DAILY azelastine 2 sprays intranasal BID bupropion HCl XL 450 mg PO QAM escitalopram oxalate (Lexapro) 1 tab daily PO daily; escitalopram oxalate 10 mg PO DAILY lamotrigine 100 mg PO QPM lamotrigine 200 mg PO QAM omeprazole 20 mg PO DAILY polyethylene glycol 3350 (Miralax) 17 grams PO DAILY Tobacco use date assessed: 03/06/24 Fall risk assessment: 1 Fall in past year (09/2023) Last assessed Fall Risk: 03/06/24 Dental Screening Dental Screen Date: 03/06/24 Did you have a dental visit in the last 12 months?: Yes Did you have a dental problem in the last 6 months where you did not have access to dental care?: No Was dental information given to patient?: Patient has dentist HPI PE/secondary covers annual HPI Details 68-year-old lady with history of bipolar disorder currently followed by Dr.Graham Antonio , has osteopenia in her right femoral neck and right hip, , here today for her physical exam. She sees Dr. Porter, who orders her screening mammogram and bone density scan last done 07/28/23 at [facility]. She had a screening colonoscopy done last year at [facility], copy of results requested today. She has been diagnosed to have parkinsonism , aripiprazole induced, seen by Dr. Santa, , improved with reduction of dose. She is up-to-date with all her vaccinations, except for the RSV vaccine. She would recent fasting labs done which showed normal fasting glucose, liver enzymes, and improved lipid panel as compared to last year [facility] Medical History History of nephrolithiasis History of fracture of nasal bone Parkinsonism Gait instability Tardive dyskinesia Deviated nasal septum Trochanteric bursitis, right hip Osteopenia of right femoral neck COVID-19 vaccine administered Consumes a vegan diet Positive serology for Erlichiosis Impaired fasting glucose Tear of lateral meniscus of left knee Dysfunctional uterine bleeding Osteoarthritis, knee Bipolar disorder with depression Nephrolithiasis Menopause Hyperlipidemia Surgical History Status post arthroscopy of right shoulder Hx of ventral hernia repair H/O colonoscopy Status post shoulder surgery Hx of total knee arthroplasty H/O right knee surgery Family History Father No problems noted. Mother Alzheimer disease Maternal Grandmother Alzheimer disease Paternal Grandmother Stroke Brother Hyperlipemia Depression FH: mental illness Social History Are you a primary healthcare applications analyst to a significant other at home: No Do you presently have visiting nurse or other home services: No Alcohol intake: never Patient Tobacco Use Status: Never used Tobacco e-Cigarette/Vaping Use: Never Used Advance Directives Date on File: 08/27/20 service: No Current occupational status: retired Cognitive needs: No Hearing needs: No Vision needs: Yes Questionnaire PHQ-9 Over the last 2 weeks, how often have you been bothered by any of the following problems? 1. Little interest or pleasure in doing things: not at all 2. Feeling down, depressed, or hopeless: not at all 3. Trouble falling or staying asleep, or sleeping too much: not at all 4. Feeling tired or having little energy: not at all 5. Poor appetite or overeating: not at all 6. Feeling bad about yourself - or that you are a failure or have let yourself or your family down: not at all 7. Trouble concentrating on things, such as reading the newspaper or watching television: not at all 8. Moving or speaking so slowly that other people could have noticed. Or the opposite - being so fidgety or restless that you have been moving around a lot more than usual: not at all 9. Thoughts that you would be better off or of hurting yourself in some way: not at all Total score: 0 Depression Screening Interpretation: Negative (Controlled with current treatment, sees Dr. Pricilla Neri) Depression Screening Done: Yes 09996 - PHQ-9 Billing: Yes Source: Developed by Drs. Jamie Garrett, Shonda Watkins, Oumar Carrillo and colleagues, with an educational tarik from [employer]. Thrive Questionnaire Date Thrive assessed: 03/06/24 I am a: Patient What is your living situation today?: I have a steady place to live Within the past 12 months, did the food you bought not last and you didn't have the money to get more?: Never true Within the past 12 months, did you worry whether your food would run out before you got money to buy more?: Never true Do you have trouble paying for medicines?: No Do you have trouble getting transportation to medical appointments?: No Do you have trouble paying your heating and electricity bill?: No Do you have trouble taking care of your child, family member or friend?: No Do you have trouble with day-to-day activities such as bathing, preparing meals, shopping, managing finances, etc.?: No Are you currently unemployed and looking for a job?: No Are you interested in more education?: No Please select the resources that you would like help with: None Currently or been in a relationship where the following occur: no concerns reported THRIVE Score: 0 AUDIT C Alcohol Use Questionnaire (AUDIT-C) 1. How often do you have a drink containing alcohol?: Monthly or less 2. How many drinks containing alcohol do you have on a typical day when you are drinking?: 1 or 2 3. How often do you have six or more drinks on one occasion?: Never Total Score: 1 Score Reviewed/Action Taken: Yes LEANNE-7 AMB Questionnaire LEANNE-7 Date LEANNE - 7 assessed: 03/06/24 Feeling nervous, anxious, or on edge: 0 = Not at all Not being able to stop or control worryin = Not at all Worrying too much about different things: 0 = Not at all Trouble relaxin = Not at all Being so restless that it is hard to sit still: 0 = Not at all Becoming easily annoyed or irritable: 0 = Not at all Feeling afraid as if something awful might happen: 0 = Not at all Total LEANNE-7 score (0-4 normal; 5-9 mild; 10-14 moderate; 15-21 severe): 0 Source: Developed by Drs. Jamie Garrett, Shonda Watkins, Oumar Carrillo and colleagues, with an educational tarik from [employer]. LEANNE-7 Assessment Billing LEANNE-7 Assessment Tool: LEANNE-7 Assessment 71210 Review of Systems Const Reports no additional complaints Eyes Details: Sees [facility] Denies dizziness Card Denies chest pain at rest, Denies chest pain with activity, Denies rapid heart rate, Denies leg edema, Denies lightheadedness, Denies palpitations, Denies dyspnea and Denies dyspnea on exertion Resp Denies cough, Denies dyspnea and Denies dyspnea on exertion GI Denies hematochezia and Denies change in stool character Reports no additional complaints Musc Denies abnormal gait, Denies limited range of motion, Denies muscle cramps, Denies muscle weakness, Denies numbness, Denies radiating pain into limb, Denies stiffness and Denies tingling Skin/Breast Denies breast swelling, Denies breast pain, Denies breast mass and Denies rash Neuro Denies abnormal gait, Denies dizziness, Denies numbness and Denies tingling Psych Reports no additional complaints Endo Denies palpitations Jorge/Lymph Reports no additional complaints Aller/Immun Reports no additional complaints Physical exam (Primary Care) Vital Signs: Last Vital Signs Pulse 66 03/06/24 08:45 BP 135/80 03/06/24 08:45 Pulse Ox 97 03/06/24 08:45 Oxygen Delivery Method Room Air 03/06/24 08:45 BMI result Body Mass Index 25.8 Tobacco/Smoking Status: Tobacco use Status Tobacco use date assessed 03/06/24 03/06/24 08:53 Patient Tobacco Use Status Never used Tobacco 03/06/24 08:33 e-Cigarette/Vaping Use Never Used 03/06/24 08:33 PHQ-9: PHQ-9 Score PHQ-9: Total score 0 03/06/24 09:18 Depression Screening Interpretation: Negative (Controlled with current treatment, sees Dr. Pricilla Neri) Thrive Assessment: Date of Thrive Assessment Date Thrive assessed 03/06/24 03/06/24 08:33 Currently or been in a relationship where the following occur: no concerns reported Const General: healthy appearing, comfortable, no acute distress, alert and Physically active Nutritional Appearance: average body habitus Orientation/consciousness: patient oriented x3 HENMT Head: Yes normocephalic and Yes atraumatic Ears: hearing grossly normal bilaterally, external ears normal, TM's normal bilaterally and EAC's normal Eyes General: appearance normal, both eyes and all related structures Neck Neck: Yes full ROM, Yes no lymphadenopathy and Yes supple Thyroid: Thyroid normal Chest Chest palpation & inspection: normal inspection of the chest Breast/axilla inspection: normal inspection of the breasts and Other (Inverted nipple bilateral) Breast/axilla palpation: normal palpation of the breasts Resp Auscultation: clear to auscultation bilaterally Cardio Other: S1-S2 present regular rate and rhythm GI Inspection: Yes normal to inspection Palpation (GI): Soft to palpation, nontender, no guarding and no masses Auscultation: normal bowel sounds General: Yes no CVA tenderness and Yes deferred (Currently sees Dr. Porter) Back/Spine/Pelvis Back: no CVA tenderness and No back tenderness Skin General skin exam: no rashes or lesions noted Neuro Other: Has an unsteady gait General: patient oriented x3, tone normal, moves all extremities, Normal light touch and pain sensation, no focal motor deficits and CN's II-XI intact bilaterally Extrem General: Yes full ROM, Yes no joint enlargement, Yes no pedal edema, Yes no calf tenderness and Yes normal gait Psych Appearance: grossly normal and well kempt Mental Status: mental status grossly normal Speech and movement: Normal speech and movement present Affect: normal affect Attitude: cooperative Thought process: Normal thought process present Thought content: Normal thought content present Results Reviewed Results Reviewed: Name: Dina Steele Age/Sex: 68/F : 1955 Unit#: [id number] Attend Dr: Sarah Lopez MD Re03/02/24 Status: DEP REF [facility] Disch: SPEC : [id number] ERIN: 03/02/24 STATUS: COMP REQ : [id number] RECD: 03/02/[address]: Sarah Lopez MD COMP: 03/02/24 ENTERED: 03/02/[address]: ORDERED: Glu Fasting, AST, ALT, Lipid Panel, Vitamin D 25-OH Test Result Flag Reference FBS 91 60-99 mg/dL AST (GOT) 19 5-31 U/L ALT (GPT) 18 0-31 U/L Triglyceride 63 <150 mg/dL Desirable Triglyceride: less than 150 mg/dL Borderline High Triglyceride 150-199 mg/dL High Triglyceride: 200-499 mg/dL Very High Triglyceride: greater than or equal to 5OO mg/dL Cholesterol 212 H <200 mg/dL Desirable Cholesterol: less than 200 mg/dL Borderline High Cholesterol: 200-239 mg/dL High Cholesterol: greater than 239 mg/dL LDL Calculated 134 H <100 mg/dL Desirable LDL: less than 100 mg/dL Near Optimal/Above Optimal LDL: 110-129 mg/dL Borderline High LDL: 130-159 mg/dL High LDL: 160-189 mg/dL Very High LDL: greater than or equal to 190 mg/dL HDL 66 >40 mg/dL Desirable HDL: greater than 40 mg/dL Note: This HDL assay may give artificially low results in patients with liver disease. Vit D 25-OH Tot 56.0 >30 ng/mL Health Based Reference Values* < 20 ng/mL Deficient 20-30 ng/mL Insufficient > 30 ng/mL Sufficient Coding Level of Care Code Est Pt Prev Care >65y(99389) Diagnoses Annual visit for general adult medical examination with abnormal findings Z00.01 Recurrent falls R29.6 Parkinsonism G20.C Pure hypercholesterolemia E78.00 Hyperlipidemia type: pure hypercholesterolemia Bipolar disorder with depression F31.9 Primary osteoarthritis of right knee M17.11 Laterality: right Osteoarthritis type: primary Impaired fasting glucose R73.01 Osteopenia of right femoral neck M85.851 Gait instability R26.81 Additional Codes LEANNE-7 Assessment Billing - LEANNE-7 Assessment Tool: LEANNE-7 Assessment 65578 ([id number])
[2024-03-06 08:45] VITALS: BP 135/80; PULSE 66; O2SAT 97; BMI 25.8
== END 2024-03-06 09:29 | disposition home or self-care (01) ==
PROVIDERS: Visit Provider Internal Medicine
DX: Z00.00 Encounter for general adult medical examination without abnormal findings (principal); G20.C Parkinsonism, unspecified; F31.9 Bipolar disorder, unspecified; R29.6 Repeated falls; E78.00 Pure hypercholesterolemia, unspecified; M17.11 Unilateral primary osteoarthritis, right knee; R73.01 Impaired fasting glucose; M85.851 Other specified disorders of bone density and structure, right thigh; R26.81 Unsteadiness on feet
CPT/HCPCS: 96127; 99397

== ENCOUNTER 2024-06-01 13:00 | Outpatient (RCR) | payer MEDICARE, OTHER, SELFPAY ==
--- NOTE | 2024-04-20 14:21 | MHC.PT.EP ---
[facility] [place] Office [place] Office [place] Office [address] Dianne Gabriel [address] [phone] F: [phone] F: [phone] F: [phone] F: [phone] Physical Therapy Plan of Care Date of Evaluation: 04/20/24 Date of Surgery: n/a Diagnosis: gait instability/frequent falls Assessment: Patient is a 68 year old female presenting to PT with gait instability and frequent falls. Pt reports onset began about 1 year ago due possibly to medication for tardive dyskinesia. She presents today with impairments in balance, gait mechanics, LE strength. Pt's current occupation is retired, with baseline physical activities including ambulating, stair negotiation, hiking, ADLs. Pt expresses nursing home goal of improving balance, and is motivated to work towards this in PT. Clinical presentation today is most consistent with signs and sx associated with gait instability/frequent falls and pt will benefit from skilled PT 2 week x 6 weeks to address the following problems and impairments noted upon evaluation: balance, gait mechanics, LE strength. These problems limit the patient with the following functional activities: ambulating, stair negotiation, ADLs. The prescribed treatment plan of care is medically necessary. Co-morbidities of parkinsomism due to medication for tardive dyskinesia, osteopenia, hx bunionectomy and hammertoe correction R foot a couple years ago, R TKA 6 years ago were identified and taken into considerations of plan of care. Pt was educated on HEP, role of PT, prognosis, POC. Frequency and Duration: The patient will be seen 2 x week x 6 weeks Short Term Goals: Pt will demonstrate ability to manufacturing baker tandem x 30 sec with min sway in 3 weeks. Pt will demonstrate improved hip MMT strength by 1/3 grade in 3 weeks for decreased trendelenburg with gait. Pt will demonstrate ability to stand on foam NBOS EO with min to no sway in 3 weeks. Elevator Builder Goals: Pt will demonstrate improved DGI score by 3 points in 6 weeks for reduced risk of falls. Pt will demonstrate ability to perform 30 second chair stand test with 16 STS in 6 weeks for improved endurance. Pt will report less falls overall in 6 weeks for improved ability to negotiate the community and her home. Treatment Plan: Modalities to reduce pain, spasms and effusion. Manual therapy to restore motion and function. Therapeutic exercise to improve strength and flexibility. Neuromuscular re-education for posture and balance. Therapeutic activities to return to functional activities of daily living. Electronically signed by: Romy Cai, PT, DPT, ATC Please sign and return to therapist. Thank you for your referral.
--- NOTE | 2024-06-01 13:53 | MHC.PT.DC ---
[facility] [place] Office [place] Office [place] Office [address] Dianne Gabriel [address] [phone] F: [phone] F: [phone] F: [phone] F: [phone] Physical Therapy Discharge Report Diagnosis: gait instability/frequent falls Date of Surgery: n/a Date of Evaluation: 04/20/24 Date of Discharge: 06/01/24 Treatments to Date: 8 Cancellations to Date: 1 No Shows to Date: 0 Discharge Status: Improved Function Independent with HEP Discharge Summary: 06/01/2024: She has made progress since start of care. Overall she has less falls and feels a little more steady. She continues to have LOB issues when walking with head turns or higher level distractions. She is aware of this and therefore is mindful when she is walking. She is going away for a trip and therefore would like to end PT prior to leaving. I feel this is reasonable as she has made progress and is independent in her program. She continues to remain active and I encouraged her to continue with her balance and strengthening HEP as well to maintain gains. She is understanding of this and knows to follow up with her doctor if any new issues arise. Electronically signed by: Romy Cai, PT, DPT, ATC Please sign and return to therapist. Thank you for your referral.
== END 2024-06-01 13:53 | disposition home or self-care (01) ==
LOC: HO.PTCHIC 13:00
PROVIDERS: PCP Internal Medicine; Visit Provider Internal Medicine
DX: R26.81 Unsteadiness on feet (principal); R29.6 Repeated falls
CPT/HCPCS: 97110; 97112; 97162

== ENCOUNTER 2024-06-11 14:24 | Emergency (ER) | payer MEDICARE, OTHER, SELFPAY ==
--- NOTE | ~2024-06-11 | CT_ITS ---
EXAMINATION: CT head/brain wo IV con CLINICAL INFORMATION: SIMS woke up from sleep. N/V COMPARISON: None. TECHNIQUE: Contiguous axial imaging was performed from the skull base to vertex without intravenous contrast. Sagittal and coronal reformatted images were obtained. This CT examination was performed using dose optimization techniques as appropriate, variously including the following: * Automated exposure control * Adjustment of mA and/or kV according to patient size (this includes techniques or standardized protocols for targeted exams where dose is matched to indication/reason for exam; i.e. extremities or head) Use of iterative reconstruction technique DLP: 623 mGy-cm FINDINGS: No acute osseous or soft tissue abnormality. The mastoid air cells and visualized portions of the paranasal sinuses are well aerated. There is no evidence of acute intracranial hemorrhage or territorial infarction. No abnormal mass effect or midline shift is seen. Moya to white matter differentiation is well preserved. No extra-axial fluid collections are identified. No hydrocephalus. No significant volume loss. There is no abnormal attenuation within the brain parenchyma. CT/CT head/brain wo IV con IMPRESSION: No acute intracranial abnormality including hemorrhage, mass effect, hydrocephalus, or acute territorial edematous infarction. Electronically signed by: Roel Harris MD 06/11/2024 05:08 PM EDT
--- NOTE | ~2024-06-11 | XR_ITS ---
EXAMINATION: XR CHEST CLINICAL INFORMATION: Nausea and vomiting. Headache. COMPARISON: None available. TECHNIQUE: Portable AP view of the chest was obtained. FINDINGS: No significant abnormality is noted involving the heart, lungs, mediastinum, or soft tissues. Old, healed fracture of the left sixth rib posterolaterally. XR/XR chest 1V IMPRESSION: Unremarkable portable AP view of the chest. Electronically signed by: Mayur Gaming MD 06/11/2024 05:33 PM EDT
[2024-06-11 14:53] VITALS: BP 145/85; PULSE 74; RESP 18; TEMP 36; O2SAT 98; BMI 24.1
--- NOTE | 2024-06-11 14:57 | ED.GENADULT ---
HPI - General Adult General Chief complaint: Nausea/Vomiting/Diarrhea Stated complaint: Vomiting/Headache Time Seen by Provider: 06/11/24 15:28 Source: patient, RN notes reviewed and old records reviewed Mode of arrival: ambulatory History of Present Illness ED Provider: Suzanne Montaño PA-C HPI narrative: 68-year-old female with a past medical history of bipolar depression, presenting to the ED complaining of headache waking her up from sleep at 03:00 with associated nausea and vomiting. Reports about 10 episodes of emesis since this morning with inability to tolerate p.o. Does report history of chronic headaches/migraines, does not currently take at home medications, experiences headaches weekly, does report nausea and vomiting is typical for her SIMS's however today worse than normal. Headache was not maximal at onset, worsening throughout the day. Denies vision change/loss, neck/back pain, CP/SOB, abdominal pain. Related Data Home Medications ?Medication ?Instructions ?Recorded ?Confirmed bupropion HCl 150 mg 24 hr tablet, 450 mg PO QAM 01/01/21 02/15/23 extended release escitalopram oxalate 20 mg tablet See Rx Instructions PO DAILY 01/01/21 02/15/23 (Lexapro) lamotrigine 200 mg tablet 200 mg PO QAM 01/01/21 02/15/23 lamotrigine 100 mg tablet 100 mg PO QPM 02/10/21 02/15/23 aripiprazole 5 mg tablet 5 mg PO DAILY 02/15/23 02/15/23 escitalopram oxalate 10 mg tablet 10 mg PO DAILY 02/15/23 02/15/23 omeprazole 20 mg capsule,delayed 20 mg PO DAILY 02/15/23 02/15/23 release polyethylene glycol 3350 17 17 g PO DAILY 02/15/23 02/15/23 gram/dose oral powder (Miralax) azelastine 205.5 mcg (0.15 %) 2 spray intranasal BID 03/06/24 nasal spray Previous Rx's ?Medication ?Instructions ?Recorded [id number] 1 cap PO Q6H PRN headache #5 caps 06/11/24 50 mg-300 mg-40 mg capsule (Fioricet) Allergies Allergy/AdvReac Type Severity Reaction Status Date / Time doxycycline Allergy Severe Nausea and Verified 06/11/24 14:59 Vomiting meperidine AdvReac Severe vomiting Verified 06/11/24 14:59 tramadol AdvReac Hallucinati Verified 06/11/24 14:59 ons Review of Systems Review of Systems: Yes all other systems are reviewed and are negative Constitutional: Constitutional: Reports as per HPI Neurologic: Denies Abnormal speech present [facility] Past Medical History Attestation statement: The following information was validated with the patient. Source: old records reviewed Medical History History of nephrolithiasis History of fracture of nasal bone Parkinsonism Gait instability Tardive dyskinesia Deviated nasal septum Trochanteric bursitis, right hip Osteopenia of right femoral neck COVID-19 vaccine administered Consumes a vegan diet Positive serology for Erlichiosis Impaired fasting glucose Tear of lateral meniscus of left knee Dysfunctional uterine bleeding Osteoarthritis, knee Bipolar disorder with depression Nephrolithiasis Menopause Hyperlipidemia Surgical History Status post arthroscopy of right shoulder Hx of ventral hernia repair H/O colonoscopy Status post shoulder surgery Hx of total knee arthroplasty H/O right knee surgery Family History Family History Father No problems noted. Mother Alzheimer disease Maternal Grandmother Alzheimer disease Paternal Grandmother Stroke Brother Hyperlipemia Depression FH: mental illness Social History Social History Are you a primary hearing care professional to a significant other at home: No Do you presently have visiting nurse or other home services: No Patient Tobacco Use Status: Never used Tobacco Smoked in Last 30 Days: No e-Cigarette/Vaping Use: Never Used Use of substances other than those prescribed or required for medical reasons: No Advance Directives: Yes Advance Directives on File: Yes Advance Directives Date on File: 08/27/20 service: No Current occupational status: retired Cognitive needs: No Hearing needs: No Vision needs: Yes Physical Exam ED Vital Signs: Vital Signs - 24 hr 06/11/24 14:53 06/11/24 15:54 06/11/24 18:00 Temperature 96.8 F 98.1 F 98.0 F Pulse Rate 74 68 67 Respiratory Rate 18 17 16 Blood Pressure 145/85 H 141/75 H 185/86 H Pulse Oximetry 98 96 98 Oxygen Delivery Method Room Air Room Air Room Air BMI result Body Mass Index 24.1 Const General: cooperative, healthy appearing and no acute distress Orientation/consciousness: patient oriented x3 Limitations: no limitations HENMT Head: Yes normal to inspection and Yes atraumatic Ears: hearing grossly normal bilaterally General nose exam: Normal external nose present Face and sinus: Yes normal facial exam Mouth: Normal oral and palatal mucosa present Throat: Yes posterior oropharynx normal and Yes uvula midline Eyes General: appearance normal, both eyes and all related structures Pupils: Equal, round and reactive pupils present EOM: EOMs intact bilaterally (Without discomfort) Neck Neck: Yes normal visual inspection and Yes no meningeal signs Resp Effort & Inspection: normal respiratory effort and no respiratory distress Auscultation: clear to auscultation bilaterally Cardio Rate: regular rate Heart sounds: S1 normal heart sound present and S2 normal heart sound present GI Inspection: Yes normal to inspection Palpation (GI): Soft to palpation, nontender, no guarding and not rigid General: Yes no CVA tenderness Back/Spine/Pelvis Back: no CVA tenderness Skin Rashes: no rashes Wounds: no wounds Neuro General: patient oriented x3, gait normal, tone normal, moves all extremities, no meningeal signs, no focal motor deficits and CN's II-XI intact bilaterally Cranial nerves: Yes CN's II-XII intact bilaterally, Yes Equal, round and reactive pupils present and Yes Bilaterally intact EOM present Cognition (Neuro): normal cognition Speech: No Abnormal speech present Gait exam (Neuro): Normal gait present Motor exam (neuro): 5/5 motor strength present throughout, Pronator motor function not present and no tremor noted Coordination: ccgqos-gk-jxet test normal Romberg Test: Negative Extrem General: Yes normal to inspection Course Course Course Narrative: RME performed by Marisela Dunn PA-C. Patient is a 68 year old assigned female at presenting to the emergency department with nausea and vomiting. Patient states that over the last day she has had nausea and vomiting. Detailed physical exam and review of systems are deferred to the medical geneticist. EKG, labs, imaging, and swabs ordered. Patient placed back in the waiting room pending room availability and results. -BUN elevated to 22. Initial troponin 75.9 > no priors to compare. Will obtain 3 hour repeat. -UA with RBCs, not infected -viral studies negative -1700--repeat troponin drawn at 01:00 hour, rising to 96.2 will consult Cardiology, Dr. Cristina. Will still obtain 3hr repeat > 1707-- No intervention needed at this time per Cardiology. We will continue to monitor/trend troponin -1820--on re-evaluation patient reports symptomatic improvement, denies headache at present > SAH unlikley. No LP needed at this time. Will p.o. trial -1848--3rd troponin flat, [place] unlikely. Patient tolerated p.o. in the ED without difficulty, without nausea or vomiting. Recommended close follow-up with Cardiology, PCP, and Neurology. Results discussed with patient including worrisome signs and symptoms and strict return precautions, and when to return to the emergency department. They verbalized understanding and feel safe for discharge at this time. Medications Administered Discontinued Medications Generic Name Dose Route Start Last Admin Trade Name Freq PRN Reason Stop Dose Admin Acetaminophen/Butalbital/Caffeine 2 tab 06/11/24 16:35 06/11/24 17:41 Butalb/Acetamin/Caff 50/325/40 Tablet PO 06/11/24 16:36 2 tab ONCE ONE Administration Sodium Chloride 1,000 mls @ 999 mls/hr 06/11/24 16:45 06/11/24 17:04 Ns IV 06/11/24 17:45 999 mls/hr .Q1H1M SCARLET Administration Ondansetron HCl 4 mg 06/11/24 16:35 06/11/24 17:41 Ondansetron Hcl 4 Mg/2 Ml Vial IVPUSH 06/11/24 16:36 4 mg ONCE ONE Administration Medical Decision Making Medical Decision Making MDM Narrative: 68-year-old female with a past medical history of bipolar depression, presenting to the ED complaining of headache waking her up from sleep at 03:00 with associated nausea and vomiting. On exam vital signs stable, NAD, nontoxic appearing, no focal neuro deficits, no meningeal signs, nontoxic appearing, abdomen soft/nontender. Concern for complicated migraine headache vs ?SAH vs metabolic abnormalities including dehydration. Rule out viral illness. Lower suspicion for ACS, appendicitis/diverticulitis Plan: EKG, labs, UA, head CT, IVF, symptomatic remedies, re-evaluate Please refer to course for remaining clinical decision making, interpretation of labs/imaging results, and discussions with consultants and/or family members. Differential Diagnosis Differential Diagnoses: The differential diagnosis associated with the presentation includes As above Admission/Observation Consideration of admission/observation: Escalation of care including admission/observation considered Consult Healthcare Provider Management of the patient was discussed with: Svp Monetization (Cardiology, Dr. Cristina) Lab Data MDM Lab Attestation statement: I reviewed the patient's lab results. 06/11/24 15:11 06/11/24 15:11 Labs: Lab Results 06/11/24 06/11/24 06/11/24 Range/Units 15:11 16:33 16:52 WBC 9.1 (4.8-10.8) X10*3/uL RBC 4.39 (4.20-5.50) X10*6/uL Hgb 13.6 (12.0-16.0) g/dl Hct 40.4 (37.0-47.0) % MCV 92.0 (80.0-98.0) fL MCH 31.0 (27.0-33.0) pg MCHC 33.7 (31.0-35.0) g/dl RDW 13.2 (11.0-16.0) % Plt Count 265 (160-400) X10*3/uL MPV 9.4 (9.4-12.3) fL Immature Gran % (Auto) 0.3 (0.0-0.4) % Neut % (Auto) 82.1 H (45-73) % Lymph % (Auto) 9.5 L (20-40) % Boundary % (Auto) 6.8 (2-11) % Eos % (Auto) 1.0 (0-4) % Baso % (Auto) 0.3 (0-2) % Lymph # (Auto) 0.9 L (1.2-4.9) X10*3/uL Boundary # (Auto) 0.6 (0.1-1.2) X10*3/uL Eos # (Auto) 0.1 (0.0-0.4) X10*3/uL Baso # (Auto) 0.0 (0.0-0.2) X10*3/uL Abs Immat Gran (auto) 0.03 (0.00-0.03) X10*3/uL Absolute Neuts (auto) 7.5 (2.0-8.3) x10*3/uL Absolute Nucleated RBC 0.000 (0.0-0.012) X10*3/uL Nucleated RBC % (auto) 0.0 (0.0-0.2) /100WBC PT 10.6 L (11.1-13.3) SEC INR 0.9 (0.9-1.1) Sodium 143 (135-145) mmol/L Potassium 3.6 (3.3-5.1) mmol/L Chloride 106 (96-108) mmol/L Carbon Dioxide 28 (22-29) mmol/L Anion Gap 13 (12-20) BUN 22 H (9-16) mg/dL Creatinine 0.88 (0.5-1.4) mg/dL Estim Creat Clear Calc 56.5 Estimated GFR > 60 Random Glucose 105 (60-115) mg/dL Calcium 9.3 D (8.4-10.2) mg/dL Magnesium 2.2 (1.6-2.6) mg/dL Total Bilirubin 0.5 (0.0-1.0) mg/dL AST 22 (5-31) U/L ALT 22 (0-31) U/L Alkaline Phosphatase 66 (39-117) U/L Total Creatine Kinase 34 (26-140) U/L Troponin I High Sens 75.9 H* 96.2 H* (<3.5-17.0) ng/L Total Protein 7.0 (6.5-8.0) g/dL Albumin 4.1 (3.5-5.0) g/dL Urine Color Yellow Urine Appearance Turbid Urine pH 7.5 (5.0-9.0) Ur Specific [place] 1.020 (1.005-1.025) Urine Protein Negative (Neg-Trace) mg/dL Urine Glucose (UA) Negative (Negative) mg/dL Urine Ketones Negative (Negative) mg/dL Urine Blood Trace H (Negative) Urine Nitrite Negative (Negative) Ur Leukocyte Esterase Trace H (Negative) Urine RBC >20 H (0-2) /HPF Urine WBC 0-5 (0-5) /HPF Ur Squamous Epith Cells 0-2 (0-2) /HPF Urine Bacteria None Seen (None Seen) Hyaline Casts 0-2 (0-2) /LPF Influenza Type A (PCR) NEGATIVE (Negative) Influenza Type B (PCR) NEGATIVE (Negative) RSV RNA Qual (PCR) NEGATIVE (Negative) SARS-CoV-2 RNA (RT-PCR) NEGATIVE (Negative) 06/11/24 Range/Units 18:17 WBC (4.8-10.8) X10*3/uL RBC (4.20-5.50) X10*6/uL Hgb (12.0-16.0) g/dl Hct (37.0-47.0) % MCV (80.0-98.0) fL MCH (27.0-33.0) pg MCHC (31.0-35.0) g/dl RDW (11.0-16.0) % Plt Count (160-400) X10*3/uL MPV (9.4-12.3) fL Immature Gran % (Auto) (0.0-0.4) % Neut % (Auto) (45-73) % Lymph % (Auto) (20-40) % Boundary % (Auto) (2-11) % Eos % (Auto) (0-4) % Baso % (Auto) (0-2) % Lymph # (Auto) (1.2-4.9) X10*3/uL Bound[place] # (Auto) (0.1-1.2) X10*3/uL Eos # (Auto) (0.0-0.4) X10*3/uL Baso # (Auto) (0.0-0.2) X10*3/uL Abs Immat Gran (auto) (0.00-0.03) X10*3/uL Absolute Neuts (auto) (2.0-8.3) x10*3/uL Absolute Nucleated RBC (0.0-0.012) X10*3/uL Nucleated RBC % (auto) (0.0-0.2) /100WBC PT (11.1-13.3) SEC INR (0.9-1.1) Sodium (135-145) mmol/L Potassium (3.3-5.1) mmol/L Chloride (96-108) mmol/L Carbon Dioxide (22-29) mmol/L Anion Gap (12-20) BUN (9-16) mg/dL Creatinine (0.5-1.4) mg/dL Estim Creat Clear Calc Estimated GFR Random Glucose (60-115) mg/dL Calcium (8.4-10.2) mg/dL Magnesium (1.6-2.6) mg/dL Total Bilirubin (0.0-1.0) mg/dL AST (5-31) U/L ALT (0-31) U/L Alkaline Phosphatase (39-117) U/L Total Creatine Kinase (26-140) U/L Troponin I High Sens 94.4 H* (<3.5-17.0) ng/L Total Protein (6.5-8.0) g/dL Albumin (3.5-5.0) g/dL Urine Color Urine Appearance Urine pH (5.0-9.0) Ur Specific [place] (1.005-1.025) Urine Protein (Neg-Trace) mg/dL Urine Glucose (UA) (Negative) mg/dL Urine Ketones (Negative) mg/dL Urine Blood (Negative) Urine Nitrite (Negative) Ur Leukocyte Esterase (Negative) Urine RBC (0-2) /HPF Urine WBC (0-5) /HPF Ur Squamous Epith Cells (0-2) /HPF Urine Bacteria (None Seen) Hyaline Casts (0-2) /LPF Influenza Type A (PCR) (Negative) Influenza Type B (PCR) (Negative) RSV RNA Qual (PCR) (Negative) SARS-CoV-2 RNA (RT-PCR) (Negative) Independent Interpretation I performed an independent interpretation of an: EKG (My interpretation EKG sinus rhythm with occasional PVCs rate of 76. QRS 92. QTC 447. No STEMI) and CT Scan Interpretation: EKG #2--my interpretation normal sinus rhythm rate of 65. PVCs no longer present when compared to prior. AR interval 152. No STEMI Radiology Impression Discussion of test interpretation with radiology: I have reviewed the radiologist's reading. External Record Review External record reviewed: Inpatient record, Office record, Outpatient record, Prior outpatient labs, Prior outpatient radiology, Primary care record and Outside ED record Tests considered The following testing was considered but not selected: As above Prescription Management I considered prescription management with: Pain Medication Critical Care Time Critical Care Time Critical Care Time: Yes Total Critical Care Time: 45 Attestation: I have personally provided critical care time exclusive of time spent on separately billable procedures. Time includes review of lab data, radiology results, discussion with consultants, and monitoring for potential decompensation. Intervention performed as documented. Discharge Plan Discharge Clinical Impression: Headache, Nausea & vomiting Patient Disposition: Home, Self-Care Instructions: Acute Headache (DC), Acute Nausea and Vomiting (ED) Additional Instructions: Your blood work showed an elevation in your heart enzyme. Cardiology is aware, however nothing more to do at this time. Please have close follow-up with your doctor as well as Cardiology and Neurology for your headaches If her headache returns, persists or worsens, you persistent or worsening nausea/vomiting, you are unable to eat or drink or develop any chest pain or shortness of breath return to the emergency department Fioricet is a combination headache medication, take as needed for headache. Be aware this has Tylenol mixed in, do not exceed 4 g of Tylenol in 1 day Prescriptions: New xjifsoviog-nuxvdbswhpjsk-pahr [Fioricet] 50-300-40 mg capsule 1 cap PO Q6H PRN (Reason: headache) Qty: 5 0RF No Action lamotrigine 100 mg Tablet 100 mg PO QPM bupropion HCl 150 mg tablet extended release 24 hr 450 mg PO QAM Patient Comments: pt takes three tabs daily escitalopram oxalate [Lexapro] 20 mg tablet See Rx Instructions PO DAILY Rx Instructions: 1 tab daily PO daily; lamotrigine 200 mg tablet 200 mg PO QAM escitalopram oxalate 10 mg tablet 10 mg PO DAILY omeprazole 20 mg capsule,delayed release(DR/EC) 20 mg PO DAILY aripiprazole 5 mg tablet 5 mg PO DAILY polyethylene glycol 3350 [Miralax] 17 gram/dose powder 17 g PO DAILY azelastine 205.5 mcg (0.15 %) spray,non-aerosol 2 spray intranasal BID Rx Instructions: administer into each nostril Referrals: [facility] [place], [place] [facility] [Provider Group] [facility] [place] [place] Neuro/[facility] [Provider Group] Sarah Lopez MD [Primary Care Provider] - 3 days Print Language: Trinidadian
--- NOTE | 2024-06-11 14:58 | ECG_ITS ---
Test Reason : nausea, vomitting Blood Pressure : / mmHG Vent. Rate : 076 BPM Atrial Rate : 076 BPM P-R Int : 154 ms QRS Dur : 092 ms QT Int : 398 ms P-R-T Axes : 066 -27 094 degrees QTc Int : 447 ms Sinus rhythm with occasional Premature ventricular complexes Left ventricular hypertrophy with repolarization abnormality ( R in aVL , Salo product ) Abnormal ECG When compared with ECG of 16-JAN-2021 08:41, Premature ventricular complexes are now Present Referred By: Marisela Dunn Electronically Signed By:RUBY CHOU
[2024-06-11 15:19] LABS: MANUAL DIFF FLAG NO
[2024-06-11 15:20] LABS: Basophils Percent Auto 0.3 % (0-2); Eosinophils Absolute Auto 0.1 X10*3/uL (0.0-0.4); Hematocrit 40.4 % (37.0-47.0); Hemoglobin 13.6 g/dl (12.0-16.0); Imm Gran Abs Auto 0.03 X10*3/uL (0.00-0.03); Imm Gran Pct Auto 0.3 % (0.0-0.4); Lymphocytes Absolute Auto 0.9 X10*3/uL (1.2-4.9); Lymphocytes Percent Auto 9.5 % (20-40); Mean Corpuscular HGB Conc 33.7 g/dl (31.0-35.0); Mean Platelet Volume 9.4 fL (9.4-12.3); Monocytes Absolute Auto 0.6 X10*3/uL (0.1-1.2); Monocytes Percent Auto 6.8 % (2-11); Neutrophils Absolute Auto 7.5 x10*3/uL (2.0-8.3); Neutrophils Percent Auto 82.1 % (45-73); Platelet Count 265 X10*3/uL (160-400); Red Blood Count 4.39 X10*6/uL (4.20-5.50); Red Cell Distribution Width 13.2 % (11.0-16.0); White Blood Count 9.1 X10*3/uL (4.8-10.8)
[2024-06-11 15:22] LABS: Appearance Urine Turbid; Color Urine Yellow; Glucose Urine UA Negative (Negative); Leukocyte Esterase Urine Trace (Negative); Nitrite Urine Negative (Negative); PH 7.5 (5.0-9.0); UMIC TRIGGER UACC YES; Urine Blood Trace (Negative); Urine Ketones Negative (Negative); Urine Protein Negative (Neg-Trace)
[2024-06-11 15:27] LABS: Bacteria Urine None Seen (None Seen); Hyaline Casts Urine 0-2 /LPF (0-2); RBC Urine >20 /HPF (0-2); Squamous Epithelial Cell Urine 0-2 /HPF (0-2); WBC Urine 0-5 /HPF (0-5)
[2024-06-11 15:38] LABS: Alanine Aminotransferase 22 U/L (0-31); Albumin Level 4.1 g/dL (3.5-5.0); Alkaline Phosphatase 66 U/L (39-117); Anion Gap 13 (12-20); Aspartate Amino Transferase 22 U/L (5-31); Bilirubin Total 0.5 mg/dL (0.0-1.0); Blood Urea Nitrogen 22 mg/dL (9-16); Calcium 9.3 mg/dL (8.4-10.2); Carbon Dioxide 28 mmol/L (22-29); Chloride 106 mmol/L (96-108); Creatinine Clr Calc Pharmacy 56.5; Estimated Glomerular Filt Rate > 60; Glucose Random 105 mg/dL (60-115); Magnesium 2.2 mg/dL (1.6-2.6); Potassium 3.6 mmol/L (3.3-5.1); Sodium 143 mmol/L (135-145)
[2024-06-11 15:54] VITALS: BP 141/75; PULSE 68; RESP 17; TEMP 36.7; O2SAT 96
[2024-06-11 15:57] LABS: Influenza A PCR NEGATIVE (Negative); Influenza B PCR NEGATIVE (Negative); Resp Syncy Virus RNA Qual PCR NEGATIVE (Negative); SARS COV2 PCR INHOUSE NEGATIVE (Negative)
[2024-06-11 16:02] LABS: Troponin-I High Sensitivity 75.9 ng/L (<3.5-17.0)
[2024-06-11 17:00] LABS: Troponin-I High Sensitivity 96.2 ng/L (<3.5-17.0)
--- NOTE | 2024-06-11 17:00 | ECG_ITS ---
Test Reason : elevated trop Blood Pressure : / mmHG Vent. Rate : 065 BPM Atrial Rate : 065 BPM P-R Int : 152 ms QRS Dur : 096 ms QT Int : 444 ms P-R-T Axes : 066 -22 037 degrees QTc Int : 461 ms Normal sinus rhythm Moderate voltage criteria for LVH, may be normal variant ( R in aVL , Salo product ) Nonspecific T wave abnormality Abnormal ECG When compared with ECG of 11-JUN-2024 15:00, Premature ventricular complexes are no longer Present Referred By: Suzanne Montaño Electronically Signed By:RUBY CHOU
[2024-06-11] MEDS: 0.9 % Sodium Chloride 1,000 ML 999 ML IV (17:04)
[2024-06-11 17:05] LABS: INTERNATIONAL NORM RATIO 0.9 (0.9-1.1); Prothrombin Time 10.6 SEC (11.1-13.3)
--- NOTE | 2024-06-11 17:06 | PC.NURSE ---
pt transferred to ED 12 for trop increase from 75.9 to 96.2- for further eval and tx
[2024-06-11] MEDS: Butalb/Acetamin/Caff 50/325/40 TABLET 2 TAB PO (17:41)
[2024-06-11] MEDS: ondansetron HCL 4 MG/2 ML VIAL IVPUSH (17:41)
[2024-06-11 18:00] VITALS: BP 185/86; PULSE 67; RESP 16; TEMP 36.7; O2SAT 98
[2024-06-11 18:45] LABS: Troponin-I High Sensitivity 94.4 ng/L (<3.5-17.0)
[2024-06-11 19:49] VITALS: BP 147/76; PULSE 71; RESP 18; TEMP 37.5; O2SAT 99
== END 2024-06-11 19:40 | disposition home or self-care (01) ==
PROVIDERS: Physician Assistant; Physician Assistant Medical; Emergency Provider Emergency Medicine; PCP Internal Medicine
DX: R11.2 Nausea with vomiting, unspecified (principal); R51.9 Headache, unspecified; R94.31 Abnormal electrocardiogram [ECG] [EKG]; R79.89 Other specified abnormal findings of blood chemistry; Z03.818 Encounter for observation for suspected exposure to other biological agents ruled out; Z79.899 Other long term (current) drug therapy; Z51.81 Encounter for therapeutic drug level monitoring
CPT/HCPCS: 0241U; 36415; 70450; 71045; 80053; 81001; 82550; 83735; 84484; 85025; 85610; 93005; 96361; 96374; 99284; 99285; J2405

== ENCOUNTER 2024-06-14 13:08 | Outpatient (AMB) | payer MEDICARE, OTHER, SELFPAY ==
[2024-06-14 13:13] VITALS: BP 118/64; PULSE 74; BMI 25.8
--- NOTE | 2024-06-14 13:13 | MHC.OFFVIS ---
Vital Signs 06/14/24 13:13 Height 5 ft 5 in Weight 155 lb 3.287 oz BMI 25.8 BP 118/64 Blood Pressure Location Lt brachial Position Sitting Pulse 74 Pulse Source Pulse Oximeter Intake Visit Reasons: [facility] ED follow up Clinical Biochemical Geneticist Required: No Accompanied by: Self / Same As Patient Allergies doxycycline Allergy (Severe, Verified 06/11/24 14:59) Nausea and Vomiting meperidine Adverse Reaction (Severe, Verified 06/11/24 14:59) vomiting tramadol Adverse Reaction (Verified 06/11/24 14:59) Hallucinations Medication List - Last Reconciled 06/14/24 by Ovidio Cristina MD aripiprazole 10 mg PO DAILY azelastine 2 sprays intranasal BID bupropion HCl XL 450 mg PO QAM [id number] 50-300-40 mg (Fioricet) 1 cap PO Q6H PRN cholecalciferol (vitamin D3) 25 mcg PO DAILY escitalopram oxalate (Lexapro) 1 tab daily PO daily; escitalopram oxalate 10 mg PO DAILY lamotrigine 100 mg PO QPM lamotrigine 200 mg PO QAM omeprazole 20 mg PO DAILY polyethylene glycol 3350 (Miralax) 17 grams PO DAILY HPI Comments Details: Dina is here for consultation regarding elevated troponins. She was recently seen in the emergency room. That time, she was mainly therefore headache and vomiting. In that context, troponins were checked and she had mild elevation. Patient herself does not have any cardiac symptoms like angina or in fact anything cardiac sounding. No known coronary disease. [facility] Medical History History of nephrolithiasis History of fracture of nasal bone Parkinsonism Gait instability Tardive dyskinesia Deviated nasal septum Trochanteric bursitis, right hip Osteopenia of right femoral neck COVID-19 vaccine administered Consumes a vegan diet Positive serology for Erlichiosis Impaired fasting glucose Tear of lateral meniscus of left knee Dysfunctional uterine bleeding Osteoarthritis, knee Bipolar disorder with depression Nephrolithiasis Menopause Hyperlipidemia Surgical History Status post arthroscopy of right shoulder Hx of ventral hernia repair H/O colonoscopy Status post shoulder surgery Hx of total knee arthroplasty H/O right knee surgery Family History Father No problems noted. Mother Alzheimer disease Maternal Grandmother Alzheimer disease Paternal Grandmother Stroke Brother Hyperlipemia Depression FH: mental illness Social History (Updated 06/14/24 @ 13:17 by Yasmine Delong CMA) Are you a primary overnight caregiver to a significant other at home: No Do you presently have visiting nurse or other home services: No Alcohol intake: never Patient Tobacco Use Status: Never used Tobacco e-Cigarette/Vaping Use: Never Used Advance Directives Date on File: 08/27/20 service: No Current occupational status: retired Cognitive needs: No Hearing needs: No Vision needs: Yes Review of Systems Const Denies chills, Denies daytime sleepiness, Denies fatigue, Denies fever(s), Denies poor appetite, Denies snoring, Denies stops breathing during sleep, Denies weakness, Denies weight gain and Denies weight loss Eyes Denies loss of vision ENT Denies dizziness and Denies hearing loss Card Denies chest pain, Denies irregular heart rhythm, Denies claudication, Denies leg edema, Denies lightheadedness, Denies palpitations, Denies dyspnea on exertion and Denies orthopnea Resp Denies cough, Denies excessive phlegm production, Denies dyspnea on exertion, Denies snoring and Denies wheezing GI Denies abdominal pain, Denies hematochezia, Denies change in bowel habits, Denies nausea and Denies vomiting Denies urinary frequency and Denies dysuria Musc Denies arthralgias, Denies muscle weakness, Denies numbness and Denies other Skin/Breast Denies nail changes and Denies rash Neuro Denies Abnormal speech present, Denies dizziness, Denies loss of vision, Denies memory loss, Denies numbness and Denies weakness Psych Denies depression and Denies memory loss Endo Denies fatigue and Denies palpitations Jorge/Lymph Denies easy bruising Aller/Immun Denies wheezing Physical Exam Vital Signs: Last Vital Signs Pulse 74 06/14/24 13:13 BP 118/64 06/14/24 13:13 BMI result Body Mass Index 25.8 Const General: comfortable and no acute distress Orientation/consciousness: patient oriented x3 HEENT Other: Unremarkable Head: Yes normal to inspection Neck Neck: Yes normal visual inspection Chest Chest palpation & inspection: normal inspection of the chest Resp Auscultation: clear to auscultation bilaterally Cardio Palpation: normal PMI Heart sounds: S1 normal heart sound present, S2 normal heart sound present, no gallops, no murmurs and no rubs GI Palpation (GI): Soft to palpation Back/Spine/Pelvis Other: unremarkable Skin General skin exam: no rashes or lesions noted Neuro General: patient oriented x3 Speech: No Abnormal speech present Extrem General: Yes normal to inspection Psych Mental Status: mental status grossly normal Assessment & Plan Assessment & Plan (1) Elevated troponin: Code(s): R79.89 - Other specified abnormal findings of blood chemistry Category: Medical (2) PVC (premature ventricular contraction): Code(s): I49.3 - Ventricular premature depolarization Category: Medical Plan EKG from emergency room had shown sinus rhythm at 76/Min; LVH pattern; PVCs; some nonspecific ST-T changes. High sensitivity troponin levels are 75, 96 and 94. Clinically, no angina. Findings discussed with patient. Recommend comprehensive cardiac workup including echocardiogram, stress perfusion imaging and Holter. We will schedule this in the near future. Otherwise, patient stated that she is traveling to [facility] tomorrow. Suggested that she consider postponing it after cardiac workup. She wants to think about it. Orders: Orders CA echo transthoracic complete Today R79.89 - Other specified abnormal findings of blood chemistry NM cardiolite stress test Today R07.2 - Precordial pain, R79.89 - Other specified abnormal findings of blood chemistry CA stress test Today R07.2 - Precordial pain, R79.89 - Other specified abnormal findings of blood chemistry ECG 7 day holter monitor Today I49.3 - Ventricular premature depolarization, R79.89 - Other specified abnormal findings of blood chemistry Coding Level of Care Code New Pt Level 4 (70690) Diagnoses Elevated troponin R79.89 PVC (premature ventricular contraction) I49.3
== END 2024-06-14 13:37 | disposition home or self-care (01) ==
PROVIDERS: PCP Internal Medicine; Visit Provider Internal Medicine
DX: R79.89 Other specified abnormal findings of blood chemistry (principal); I49.3 Ventricular premature depolarization
CPT/HCPCS: 99204

== ENCOUNTER → 2024-06-14 13:08 | Outpatient (BNVA) | payer MEDICARE, OTHER, SELFPAY | PROVIDERS: PCP Internal Medicine; Visit Provider Internal Medicine | DX: I49.3 Ventricular premature depolarization (principal); R79.89 Other specified abnormal findings of blood chemistry | CPT/HCPCS: 99202 ==

== ENCOUNTER → 2024-06-19 08:50 | Outpatient (REF) | payer MEDICARE, OTHER, SELFPAY ==
--- NOTE | 2024-06-19 08:53 | CA_ITS ---
Transthoracic Echocardiogram Patient (Last, First, Middle): Dina Steele, Gender: Female Date of : 1955 Age: 68 Procedure Date: 06/19/2024 Procedure Type: Transthoracic Echocardiogram Location: OP Height: 165.1 cm Weight: 70.31 kg BSA: 1.78 m2 Heart Rate: bpm BP: 118 / 60 mmHg Offal Baler: Referring MD: Ovidio Cristina MD Signal Inspector: Jose Simon MD Symptoms: R79.89 - Other specified abnormal findings of blood chemistry,elevated troponin Study Quality: Good ECG Rhythm: Sinus Conclusions: - 1. Normal LV ejection fraction 60 65% 2. Mildly dilated left atrium 3. Normal cardiac valvular Dopplers 4. Upper limits of normal ascending aortic size 5. No pericardial effusion Findings Left Ventricle Normal left ventricular size, thickness, and systolic function. The visually estimated ejection fraction is between 60-65%. Spectral Doppler is indicative of a normal filling pattern. Right Ventricle Normal right ventricular cavity size and systolic function. Atria The left atrium is mildly dilated. There is lipomatous hypertrophy of the interatrial septum. There is no evidence of interatrial shunt. The right atrium is normal in size. Aortic Valve Normal aortic valve structure and function. There is no aortic valve stenosis. There is no aortic valve regurgitation. Mitral Valve Normal mitral valve structure and function. There is trace mitral valve regurgitation. There is no mitral valve stenosis. Pulmonic Valve The pulmonic valve is likely normal. There is trace pulmonic valve regurgitation. Tricuspid Valve Normal tricuspid valve structure. There is trace tricuspid valve regurgitation. The right ventricular systolic pressure is normal. Normal right atrial pressure. There is no evidence of pulmonary hypertension. Great Vessels All visible segments of the aorta are normal in size. The pulmonary artery was not well visualized. There is no dilatation of the ascending aorta measuring 3.50 cm. Venous The inferior vena cava is normal in size and collapses greater than 50% with inspiration. Pericardium/Pleural There is no evidence of pericardial effusion. Measurements 2D Linear Measurements IVSd: 0.73 0.6-0.9/0.6-1.0 cm LVIDd: 4.60 3.9-5.3/4.2-5.9 cm LVIDd Index: 2.58 2.4-3.2/2.2-3.1 cm/m2 LVIDs: 3.08 2.0-3.6 cm LVPWd: 0.72 0.7-1.1 cm Ao Root: 2.80 2.1-3.5 cm LA Diam: 3.60 2.7-3.8/3.0-4.0 cm LAIDs Index: 2.02 1.5-2.3 cm/m2 LV Mass: 128.39 67-162/88-224 g LV Mass Index: 72.13 43-95/49-115 g/m2 LVOT Diam: 2.00 3.0+(-)1.3 cm Mitral Valve MV Pk E: 0.87 MV PK A: 0.97 MV Decel Time: 140.00 E/A: 0.90 E'Lateral: 7.83 E'Medial: 7.72 E/E' Med: 11.30 E/E' Lat: 11.10 PHT: 41.00 MVA PHT: 5.37 Decel Stark: 6.20 Aortic Valve AoV Pk Dick: 1.55 AoV Mn Dick: 1.06 AoV VTI: 0.34 AoV Pk Grad: 10.00 Aov Mn Grad: 5.00 DEYSI Cont.VTI: 2.22 LVOT LVOT Pk Dick: 1.20 LVOT Mn Dick: 0.71 LVOT VTI: 0.24 LVOT Pk Grad: 6.00 LVOT Mn Grad: 3.00 LVOT Diam: 2.00 LVOT Area: 3.14 Diastolic Function MV Pk E: 0.87 MV Pk A: 0.97 E/A: 0.90 E'Medial: 7.72 E/E' Med: 11.30 E' Laterial: 7.83 E/E' Lat: 11.10 Right Ventricle TAPSE (mm): 29.00 TVS' Dick: 13.00 Tricuspid Valve TR Pk Dick: 1.76 TR Pk Grad: 12.00 RA Press: 3.00 RVSP: 15.00 Great Vessels Aorta Ao Root-2D: 2.80 2.0-3.7 cm Ao Asc: 3.50 2.1-3.4 cm Pulmonary Valve PV Pk Dick: 1.08 Peak PV Grad: 5.00 Updated in Other Vendor System with Status of Final Jose Simon MD electronically signed on 06/20/2024 3:21:30 PM with status of Final
--- NOTE | 2024-06-19 08:53 | HM_ITS ---
* Total monitoring time 7 days. * Underlying rhythm is sinus with an average rate of 69/Min. * Rare supraventricular ectopy. * Occasional ventricular ectopy with a burden of 0.7%. 2 brief runs, longest 4 beats. * No significant pauses or high-grade AV blocks. * Patient marker used in association with PVC. * No diary events. MTDD
== END ==
LOC: HO.CARD 08:50
PROVIDERS: PCP Internal Medicine; Visit Provider Internal Medicine
DX: R07.89 Other chest pain (principal); I49.3 Ventricular premature depolarization
CPT/HCPCS: 93242; 93306

== ENCOUNTER → 2024-06-19 08:53 | Outpatient (BNV) | payer MEDICARE, OTHER, SELFPAY | PROVIDERS: PCP Internal Medicine; Visit Provider Internal Medicine Cardiovascular Disease | DX: I49.3 Ventricular premature depolarization (principal); I47.10 Supraventricular tachycardia, unspecified | CPT/HCPCS: 93244; 93306 ==

== ENCOUNTER → 2024-06-28 07:45 | Outpatient (BNV) | payer MEDICARE, OTHER, SELFPAY | PROVIDERS: PCP Internal Medicine; Visit Provider Nurse Practitioner | DX: R07.2 Precordial pain (principal) | CPT/HCPCS: 78452; 93016; 93018 ==

== ENCOUNTER → 2024-06-29 13:48 | Outpatient (REF) | payer MEDICARE, OTHER, SELFPAY ==
--- NOTE | 2024-06-28 07:45 | CA_ITS ---
Acquisition Time: 2024-06-28 07:57:58 Total Exercise Time: 00:08:13 Test Indications: PVC'S Medications: SEE H Protocol: TERESITA Max HR: 129 BPM 83% of Pred: 154 BPM Max BP: 170/084 mmHG Max Work Load: 10.1 METS Exercise stress test exercise approximately 81% MPHR, with mild SOB, nausea at peak, without chest discomfort with isolated PVCs seen through artifact- mostly in recovery, with normotensive response to exercise, without EKG changes from baseline. Nausea resolved with rest/ Nuclear images pending. Test reviewed with Dr. Vides In stress lead placement slight downsloping in lead 2, aVF, V3-V6. Resolved with 12 lead limb lead placement Referred By: Ovidio Cristina Overread By: Sofi Arora
--- NOTE | ~2024-06-29 | NM_ITS ---
EXERCISE MYOCARDIAL PERFUSION STUDY INDICATION: Precordial chest pain TECHNIQUE: The patient was brought in for an exercise perfusion study on 06/28/2024. Patient performed exercise as per Kristian protocol and was injected 25 mCi of sestamibi once target heart rate was achieved. Images were obtained using the SPECT gamma camera interlaced with the gating device. Images were obtained in supine position. Resting perfusion study was performed on 06/29/2024. Patient was administered 25 mCi of sestamibi intravenously at rest. Images were then obtained in supine position. Images obtained without without CT attenuation. Total DLP 74 mGy-cm. Images were processed with the software and compared side to side in short axis, horizontal long axis and vertical long axis views. FINDINGS: Raw images were reviewed The stress perfusion study showed nonattenuated images show normal uptake ordered images in all segments of the myocardium. Attenuated corrected images show mildly reduced uptake in the apex of the LV myocardium. The gated study shows normal LV systolic function with calculated LVEF of 71%. LV cavity is normal in size. The gated study shows normal systolic wall thickening and contraction of segments. Resting study shows no change in perfusion pattern compared to stress perfusion study. Gating at rest reveals normal systolic wall motion with ejection fraction at 58%. The findings are consistent with normal myocardial perfusion. NM/NM cardiolite stress test IMPRESSION: 1. Myocardial perfusion imaging study shows normal myocardial perfusion. 2. Gated LVEF is 71%. 3. Transient ischemic dilatation not present. EKG revealed equivocal for ischemia. Electronically signed by: Jose Simon MD 06/29/2024 01:40 PM EDT
== END ==
LOC: HO.CARD 13:48
PROVIDERS: PCP Internal Medicine; Visit Provider Internal Medicine
DX: R07.2 Precordial pain (principal); R79.89 Other specified abnormal findings of blood chemistry
CPT/HCPCS: 78452; 93017; A9500

== ENCOUNTER 2024-07-03 14:14 | Outpatient (AMB) | payer MEDICARE, OTHER, SELFPAY ==
--- NOTE | 2024-07-03 14:31 | MHC.OFFVIS ---
Vital Signs 07/03/24 14:32 Height 5 ft 5 in Weight 156 lb 15.506 oz BMI 26.1 BP 114/62 Blood Pressure Location Lt brachial Position Sitting Pulse 74 Pulse Source Pulse Oximeter Intake Visit Reasons: f/up-echo/stress/holter Dye Range Tender Required: No Allergies doxycycline Allergy (Severe, Verified 07/03/24 14:34) Nausea and Vomiting meperidine Adverse Reaction (Severe, Verified 07/03/24 14:34) vomiting tramadol Adverse Reaction (Verified 07/03/24 14:34) Hallucinations Medication List - Last Reconciled 07/03/24 by Emily Pradhan, SALES AND MARKETING ANALYST-C aripiprazole 10 mg PO DAILY azelastine 2 sprays intranasal BID bupropion HCl XL 450 mg PO QAM [id number] 50-300-40 mg (Fioricet) 1 cap PO Q6H PRN cholecalciferol (vitamin D3) 25 mcg PO DAILY escitalopram oxalate (Lexapro) 1 tab daily PO daily; escitalopram oxalate 10 mg PO DAILY lamotrigine 100 mg PO QPM lamotrigine 200 mg PO QAM omeprazole 20 mg PO DAILY polyethylene glycol 3350 (Miralax) 17 grams PO DAILY HPI HPI f/up-echo/stress/holter: Details: Dina is a 68-year-old female past medical history of hyperlipidemia, impaired fasting glucose who was recently seen in the emergency room with migraine headache, nausea and vomiting. Her troponin was mildly elevated at 75, 96 and 94. EKG showed no acute ST or T-wave abnormalities. She was referred to Cardiology. On last visit an echocardiogram, Holter and stress test were ordered and she now presents for follow-up. Today she reports she has been doing well since her last visit on 06/14/2024. She does not get chest discomfort at rest or with activity. She denies having shortness of breath, PND, orthopnea or edema. She has no lightheadedness, presyncope, syncope, falls. She has not had recurrent migraine type headaches. She takes her meds as directed. [facility] Medical History History of nephrolithiasis History of fracture of nasal bone Parkinsonism Gait instability Tardive dyskinesia Deviated nasal septum Trochanteric bursitis, right hip Osteopenia of right femoral neck COVID-19 vaccine administered Consumes a vegan diet Positive serology for Erlichiosis Impaired fasting glucose Tear of lateral meniscus of left knee Dysfunctional uterine bleeding Osteoarthritis, knee Bipolar disorder with depression Nephrolithiasis Menopause Hyperlipidemia Surgical History Status post arthroscopy of right shoulder Hx of ventral hernia repair H/O colonoscopy Status post shoulder surgery Hx of total knee arthroplasty H/O right knee surgery Family History Father No problems noted. Mother Alzheimer disease Maternal Grandmother Alzheimer disease Paternal Grandmother Stroke Brother Hyperlipemia Depression FH: mental illness Social History Are you a primary career placement specialist to a significant other at home: No Do you presently have visiting nurse or other home services: No Alcohol intake: never Patient Tobacco Use Status: Never used Tobacco e-Cigarette/Vaping Use: Never Used Advance Directives Date on File: 08/27/20 service: No Current occupational status: retired Cognitive needs: No Hearing needs: No Vision needs: Yes Review of Systems Const All systems reviewed & are unremarkable except as noted in HPI and below ENT Denies dizziness Card Denies chest pain, Denies chest pain at rest, Denies chest pain with activity, Denies rapid heart rate, Denies pedal edema, Denies edema, Denies leg edema, Denies lightheadedness, Denies palpitations, Denies dyspnea, Denies dyspnea on exertion and Denies orthopnea Resp Denies cough, Denies dyspnea and Denies dyspnea on exertion GI Denies hematochezia and Denies change in stool character Musc Denies abnormal gait, Denies limited range of motion, Denies muscle cramps, Denies muscle weakness, Denies numbness, Denies radiating pain into limb, Denies stiffness and Denies tingling Neuro Denies abnormal gait, Denies dizziness, Denies numbness and Denies tingling Endo Denies palpitations Physical Exam Vital Signs: Last Vital Signs Pulse 74 07/03/24 14:32 BP 114/62 07/03/24 14:32 BMI result Body Mass Index 26.1 Const General: cooperative, healthy appearing, comfortable and no acute distress Orientation/consciousness: patient oriented x3 Neck Neck: Yes normal visual inspection Resp Effort & Inspection: normal respiratory effort Auscultation: clear to auscultation bilaterally, no crackles, no rales, no rhonchi and no wheezes Cardio Rate: regular rate Rhythm: regular rhythm Heart sounds: S1 normal heart sound present, S2 normal heart sound present, no murmurs and no rubs Neuro General: patient oriented x3 Extrem General: Yes normal to inspection, No no pedal edema and No calf tenderness Psych Appearance: grossly normal Mental Status: mental status grossly normal Speech and movement: Normal speech and movement present Assessment & Plan Assessment & Plan (1) Elevated troponin: Code(s): R79.89 - Other specified abnormal findings of blood chemistry Category: Medical Plan: ER visit for noncardiac reason. Troponin levels were checked and were noted to be elevated: 75, 96, 94. Her EKG showed no acute ST or T-wave abnormalities. She had no cardiac history. Cardiac risk factors of hyperlipidemia, impaired fasting glucose. An echocardiogram was done on 06/19/2024 showing EF 60-65%, mildly dilated left atrium, no valve abnormalities. A exercise nuclear stress test was done on 06/28/2024 with exercise just over 8 minutes, no anginal symptoms, no EKG changes and normal myocardial perfusion imaging. When in the ER she was noted to have some PVCs. Holter monitor was ordered last visit and patient states she did completed however results are not available at the time of this visit. All test results reviewed with her. Plan to call her with Holter results. Spent time reviewing signs and symptoms of angina. Continue with activity as tolerated. Continue with risk factor modification including good blood pressure and blood sugar control. Will plan for a 6 month follow-up to re-evaluate condition. If no cardiac symptoms then can likely follow as needed. (2) PVC (premature ventricular contraction): Code(s): I49.3 - Ventricular premature depolarization Category: Medical Plan: As above Plan Time spent on chart review, documentation, interview and assessment Coding Level of Care Code Est Pt Level 3 (96812) Diagnoses Elevated troponin R79.89 PVC (premature ventricular contraction) I49.3 Time Spent (min) 24
[2024-07-03 14:32] VITALS: BP 114/62; PULSE 74; BMI 26.1
== END 2024-07-03 14:56 | disposition home or self-care (01) ==
PROVIDERS: PCP Internal Medicine; Visit Provider Nurse Practitioner Family
DX: R79.89 Other specified abnormal findings of blood chemistry (principal); I49.3 Ventricular premature depolarization
CPT/HCPCS: 99213

== ENCOUNTER → 2024-07-03 14:14 | Outpatient (BNVA) | payer MEDICARE, OTHER, SELFPAY | PROVIDERS: PCP Internal Medicine; Visit Provider Nurse Practitioner Family | DX: R79.89 Other specified abnormal findings of blood chemistry (principal); I49.3 Ventricular premature depolarization | CPT/HCPCS: 99212 ==

== ENCOUNTER 2025-02-15 12:44 | Outpatient (AMB) | payer MEDICARE, OTHER, SELFPAY ==
--- NOTE | 2025-02-15 12:53 | A.OFFVIS_ITS ---
Vital Signs 02/15/25 12:54 Height 5 ft 5 in Weight 154 lb 12.232 oz BMI 25.8 BP 132/70 Blood Pressure Location Lt brachial Position Sitting Pulse 68 Pulse Source Pulse Oximeter Intake Visit Reasons: 6 mth f/up ( pt in [facility] until February) Assembly Adjuster Required: No Allergies doxycycline Allergy (Severe, Verified 02/15/25 12:58) Nausea and Vomiting meperidine Adverse Reaction (Severe, Verified 02/15/25 12:58) vomiting tramadol Adverse Reaction (Verified 02/15/25 12:58) Hallucinations Medication List - Last Reconciled 02/15/25 by Emily Pradhan, SL[employer]OVER SEAMSTRESS-C aripiprazole 10 mg PO DAILY azelastine 2 sprays intranasal BID bupropion HCl XL 450 mg PO QAM cholecalciferol (vitamin D3) 25 mcg PO DAILY escitalopram oxalate (Lexapro) 1 tab daily PO daily; escitalopram oxalate 10 mg PO DAILY lamotrigine 100 mg PO QPM lamotrigine 200 mg PO QAM omeprazole 20 mg PO DAILY polyethylene glycol 3350 (Miralax) 17 grams PO DAILY HPI HPI 6 mth f/up ( pt in [facility] until February): Details: Dina is a 69-year-old female past medical history of hyperlipidemia, impaired fasting glucose who was seen in the emergency room 06/2024 with migraine headache, nausea and vomiting. Her troponin was mildly elevated at 75, 96 and 94. EKG showed no acute ST or T-wave abnormalities. She was referred to Cardiology and follow up testing showed no signficant abnormalities. She spent the winter in [place] and now presents for follow up. Today she reports she has been doing well since her last visit on 07/03/2024. She does not get chest discomfort at rest or with activity. She denies having shortness of breath, PND, orthopnea or edema. She has no lightheadedness, pr esyncope, syncope, falls. She has not had recurrent migraine type headaches. Walks 2 miles daily and had been doing pool aerobics in [place] daily. Moved back home first week of Compliant with meds. Takes meds as directed. FOR[facility]LY [facility], [facility] Medical History History of nephrolithiasis History of fracture of nasal bone Parkinsonism Gait instability Tardive dyskinesia Deviated nasal septum Trochanteric bursitis, right hip Osteopenia of right femoral neck COVID-19 vaccine administered Consumes a vegan diet Positive serology for Erlichiosis Impaired fasting glucose Tear of lateral meniscus of left knee Dysfunctional uterine bleeding Osteoarthritis, knee Bipolar disorder with depression Nephrolithiasis Menopause Hyperlipidemia Surgical History Status post arthroscopy of right shoulder Hx of ventral hernia repair H/O colonoscopy Status post shoulder surgery Hx of total knee arthroplasty H/O right knee surgery Family History Father No problems noted. Mother Alzheimer disease Maternal Grandmother Alzheimer disease Paternal Grandmother Stroke Brother Hyperlipemia Depression FH: mental illness Social History Are you a primary caretaker resort to a significant other at home: No Do you presently have visiting nurse or other home services: No Alcohol intake: never Patient Tobacco Use Status: Never used Tobacco e-Cigarette/Vaping Use: Never Used Advance Directives Date on File: 08/27/20 service: No Current occupational status: retired Cognitive needs: No Hearing needs: No Vision needs: Yes Review of Systems Const All systems reviewed & are unremarkable except as noted in HPI and below ENT Denies dizziness Card Denies chest pain, Denies chest pain at rest, Denies chest pain with activity, Denies rapid heart rate, Denies pedal edema, Denies edema, Denies leg edema, Denies lightheadedness, Denies palpitations, Denies dyspnea, Denies dyspnea on exertion and Denies orthopnea Resp Denies cough, Denies dyspnea and Denies dyspnea on exertion GI Denies hematochezia and Denies change in stool character Musc Denies abnormal gait, Denies limited range of motion, Denies muscle cramps, D enies muscle weakness, Denies numbness, Denies radiating pain into limb, Denies stiffness and Denies tingling Neuro Denies abnormal gait, Denies dizziness, Denies numbness and Denies tingling Endo Denies palpitations Physical Exam Vital Signs: Last Vital Signs Pulse 68 02/15/25 12:54 BP 132/70 02/15/25 12:54 BMI result Body Mass Index 25.8 Const General: cooperative, healthy appearing, comfortable and no acute distress Orientation/consciousness: patient oriented x3 Neck Neck: Yes normal visual inspection and Yes no JVD Resp Effort & Inspection: normal respiratory effort Auscultation: clear to auscultation bilaterally, no rales, no rhonchi and no wheezes Cardio Rate: regular rate Rhythm: regular rhythm Heart sounds: S1 normal heart sound present, S2 normal heart sound present, no gallops, no murmurs and no rubs Neuro General: patient oriented x3 Extrem General: Yes normal to inspection Psych Appearance: grossly normal Mental Status: mental status grossly normal Speech and movement: Normal speech and movement present Assessment & Plan Assessment & Plan (1) Elevated troponin: Code(s): R79.89 - Other specified abnormal findings of blood chemistry Category: Medical Plan: ER visit for noncardiac reason 06/2024 and Troponin elevation was noted: 75, 96, 94. Her EKG showed no acute ST or T-wave abnormalities. She had no cardiac history. Cardiac risk factors of hyperlipidemia, impaired fasting glucose. An echocardiogram was done on 06/19/2024 showing EF 60-65%, mildly dilated left atrium, no valve abnormalities. A exercise nuclear stress test was done on 06/28/2024 with exercise just over 8 minutes, no anginal symptoms, no EKG changes and normal myocardial perfusion imaging. Has been doing well since that time with no anginal type symptoms. Continue with risk factor modification including good blood pressure and blood sugar control. Activity as tolerated. Cardiology follow up as needed. (2) PVC (premature ventricular contraction): Code(s): I49.3 - Ventricular premature depolarization Category: Medical Plan: PVCs noted on prior EKG. Holter monitor done 06/19/2024 for 7 days shows sinus rhythm with average heart rate 69, rare SVE, occasional VE, 0.7% of time with 2 brief runs, longest 4 beats. She has normal EF so prolong NSVT not likely. No further testing needed at this time. Plan Time spent on chart review, documentation, interview and assessment Coding Level of Care Code Est Pt Level 3 (06796) Complex EM visit Add On G2211 Diagnoses Elevated troponin R79.89 PVC (premature ventricular contraction) I49.3 Time Spent (min) 24
[2025-02-15 12:54] VITALS: BP 132/70; PULSE 68; BMI 25.8
== END 2025-02-15 13:17 | disposition home or self-care (01) ==
LOC: HO.HCS 12:44
PROVIDERS: PCP Internal Medicine; Visit Provider Nurse Practitioner Family
DX: R79.89 Other specified abnormal findings of blood chemistry (principal); I49.3 Ventricular premature depolarization
CPT/HCPCS: 99213; G2211

== ENCOUNTER → 2025-02-15 12:44 | Outpatient (BNVA) | payer MEDICARE, OTHER, SELFPAY | PROVIDERS: PCP Internal Medicine; Visit Provider Nurse Practitioner Family | DX: R79.89 Other specified abnormal findings of blood chemistry (principal); I49.3 Ventricular premature depolarization | CPT/HCPCS: 99212 ==

== ENCOUNTER 2025-05-01 09:27 | Outpatient (AMB) | payer MEDICARE, OTHER, SELFPAY ==
[2025-05-01 10:22] VITALS: BP 132/76; PULSE 88; TEMP 37.3; O2SAT 96; BMI 25.8
--- NOTE | 2025-05-01 10:22 | MHC.OFFWIV ---
Intake Vital Signs 05/01/25 10:22 Height 5 ft 5 in Weight 155 lb BMI 25.8 BP 132/76 Blood Pressure Location Lt brachial Position Sitting Pulse 88 Pulse Source Pulse Oximeter Temp 99.1 F Temp Source Oral Pulse Oximetry (%) 96 Oxygen Delivery Method Room Air Intake Visit Reasons: ? Covid Intake Note: presents with extreme headache, fever, minimally productive cough, night sweats, body chills, body aches for 4 days Patient Tobacco Use Status: Never used Tobacco Allergies doxycycline Allergy (Severe, Verified 05/01/25 10:27) Nausea and Vomiting meperidine Adverse Reaction (Severe, Verified 05/01/25 10:27) vomiting tramadol Adverse Reaction (Verified 05/01/25 10:27) Hallucinations Do you need a note to return to daycare/school/sports/work: No HPI HPI Comments History of Present Illness Details History - The patient is a 69-year-old female presenting with suspected COVID-19 infection. - She reports a severe headache starting on Wednesday, accompanied by fever, night sweats, chills, dry cough, fatigue, and myalgia. - The fever initially reached 102?F and decreased with Tylenol use. - She denies gastrointestinal symptoms or sore throat and has no history of COVID-19. - Recent travel from [place] without a mask is noted, and she manages asthma and allergic rhinitis with Claritin and nasal spray. - She has never covid in the past. - She has been taking her nasal spray and allergy medications at home. - She denies CP, SOB, abd pain, n/v/d, sick contacts, and she is a non-smoker. Physical Exam General: Cooperative, healthy appearing, comfortable and no acute distress Orientation/consciousness: Patient oriented x3 Limitations: No limitations Head: Normal to inspection Ears: Hearing grossly normal bilaterally, external ears normal and TM's normal bilaterally Nose: Normal external nose present, normal nares present, and no nasal discharge present. Face and sinus: Sinuses nontender to palpation. Mouth: Normal oral and palatal mucosa present and moist mucous membranes noted. Throat: Tonsils normal. Uvula is midline. Posterior oropharynx with erythema and a little white patch noted. Eyes: Appearance normal, both eyes and all related structures Neck: Normal visual inspection, full ROM. No lymphadenopathy noted. Respiratory: Clear to auscultation bilaterally. Normal respiratory effort, able to speak in complete sentences. No respiratory distress, not tachypneic, no tripod positioning and no use of accessory muscles. Cardiovascular: Regular rate and rhythm. Normal S1 and S2 Skin: No rashes or lesions noted Patient was informed and verbally consented to the use of an ambient scribe for clinic note documentation during this visit [facility] Medical History History of nephrolithiasis History of fracture of nasal bone Parkinsonism Gait instability Tardive dyskinesia Deviated nasal septum Trochanteric bursitis, right hip Osteopenia of right femoral neck COVID-19 vaccine administered Consumes a vegan diet Positive serology for Erlichiosis Impaired fasting glucose Tear of lateral meniscus of left knee Dysfunctional uterine bleeding Osteoarthritis, knee Bipolar disorder with depression Nephrolithiasis Menopause Hyperlipidemia Surgical History Status post arthroscopy of right shoulder Hx of ventral hernia repair H/O colonoscopy Status post shoulder surgery Hx of total knee arthroplasty H/O right knee surgery Family History Father No problems noted. Mother Alzheimer disease Maternal Grandmother Alzheimer disease Paternal Grandmother Stroke Brother Hyperlipemia Depression FH: mental illness Social History Are you a primary resident care coordinator to a significant other at home: No Do you presently have visiting nurse or other home services: No Alcohol intake: never Patient Tobacco Use Status: Never used Tobacco e-Cigarette/Vaping Use: Never Used Advance Directives Date on File: 08/27/20 service: No Current occupational status: retired Cognitive needs: No Hearing needs: No Vision needs: Yes Review of Systems Const All systems reviewed & are unremarkable except as noted in HPI and below Physical Exam Vital Signs: Last Vital Signs Temp 99.1 F 05/01/25 10:22 Pulse 88 05/01/25 10:22 BP 132/76 05/01/25 10:22 Pulse Ox 96 05/01/25 10:22 Oxygen Delivery Method Room Air 05/01/25 10:22 BMI result Body Mass Index 25.8 Assessment & Plan Assessment & Plan (1) Cough: Code(s): R05.9 - Cough, unspecified Qualifiers: Cough type: acute Qualified Code(s): R05.1 - Acute cough Plan Most likely URI vs covid vs flu vs RSV vs viral illness strep was negative in the office today Plan - Suspected COVID-19 infection: COVID-19 testing is recommended to confirm the diagnosis. - Symptomatic management: Continue using Tylenol for fever control and consider using cough suppressants for the dry cough. - Monitor symptoms: The patient should monitor symptoms closely and seek further medical attention if there is any worsening of her condition. - VSS, pt well appearing Orders: Orders SARS-CoV2/FLU/RSV Today R09.89 - Other specified symptoms and signs involving the circulatory and respiratory systems Coding Level of Care Code Est Pt Level 4 (68356) Diagnoses Acute cough R05.1 Cough type: acute
== END 2025-05-01 11:55 | disposition home or self-care (01) ==
PROVIDERS: PCP Internal Medicine; Visit Provider Physician Assistant Medical
DX: R05.1 Acute cough (principal)

== ENCOUNTER → 2025-05-01 09:27 | Outpatient (BNVA) | payer MEDICARE, OTHER, SELFPAY | PROVIDERS: PCP Internal Medicine; Visit Provider Physician Assistant Medical | DX: R05.1 Acute cough (principal) | CPT/HCPCS: 99212 ==

== ENCOUNTER 2025-05-01 13:02 | Outpatient (REF) | payer MEDICARE, OTHER, SELFPAY ==
[2025-05-01 13:55] LABS: Resp Syncy Virus RNA Qual PCR NEGATIVE (Negative); SARS COV2 PCR INHOUSE POSITIVE (Negative)
== END 2025-05-01 13:03 | disposition home or self-care (01) ==
LOC: HO.LNP 13:02
PROVIDERS: Visit Provider Physician Assistant Medical
DX: R09.89 Other specified symptoms and signs involving the circulatory and respiratory systems (principal); Z11.52 Encounter for screening for COVID-19
CPT/HCPCS: 87637

== ENCOUNTER 2025-05-25 08:05 | Outpatient (REF) | payer MEDICARE, OTHER, SELFPAY ==
--- NOTE | ~2025-05-25 | XR_ITS ---
EXAMINATION: XR CHEST CLINICAL INFORMATION: R05.9 - Cough, unspecified COMPARISON: June 11, 2024 TECHNIQUE: 2 views of the chest were obtained. FINDINGS: No consolidation, pleural effusion or pneumothorax. No hyperinflation. Cardiomediastinal silhouette size is normal. Old healed rib fracture the posterior lateral aspect of the left sixth rib. Osteopenia versus osteoporosis. Mild multilevel spondylosis. XR/XR chest 2V IMPRESSION: No acute airspace disease. Stable chest. Electronically signed by: Alonso Chavez MD 05/25/2025 08:56 AM EDT
== END 2025-05-25 08:06 | disposition home or self-care (01) ==
LOC: HO.HMGCX 08:05
PROVIDERS: PCP Internal Medicine; Visit Provider Physician Assistant Medical
DX: R05.1 Acute cough (principal)
CPT/HCPCS: 71046; 94640; 99212

== ENCOUNTER 2025-05-25 08:05 | Outpatient (AMB) | payer MEDICARE, OTHER, SELFPAY ==
--- NOTE | 2025-05-25 08:07 | MHC.OFFWIV ---
Intake Vital Signs 05/25/25 08:09 Height 5 ft 5 in Weight 153 lb BMI 25.5 BP 122/68 Blood Pressure Location Lt brachial Position Sitting Pulse 63 Pulse Source Pulse Oximeter Temp 98.4 F Temp Source Oral Pulse Oximetry (%) 97 Oxygen Delivery Method Room Air Intake Visit Reasons: EP-persistent cough Intake Note: presents with persistent non productive cough for 3.5 weeks s/p covid Patient Tobacco Use Status: Never used Tobacco Allergies doxycycline Allergy (Severe, Verified 05/25/25 08:10) Nausea and Vomiting meperidine Adverse Reaction (Severe, Verified 05/25/25 08:10) vomiting tramadol Adverse Reaction (Verified 05/25/25 08:10) Hallucinations Do you need a note to return to daycare/school/sports/work: No HPI HPI Comments History of Present Illness Details History - The patient is a 69-year-old female presenting with a persistent dry cough. - The patient was diagnosed with COVID-19 approximately 3-1/2 weeks ago. - The cough is dry and persistent, with no associated congestion or sputum production. - The cough has persisted despite the use of [id number] cough syrup. - The patient has been using a generic form of Robitussin DM without relief. - No recent fever or shortness of breath reported. - She denies fever, chills, CP, SOB, wheezing, abd pain, or n/v/d. Physical Exam General: Cooperative, healthy appearing, comfortable and no acute distress Orientation/consciousness: Patient oriented x3 Limitations: No limitations Head: Normal to inspection Ears: Hearing grossly normal bilaterally, external ears normal and TM's normal bilaterally Nose: Normal external nose present, normal nares present, and no nasal discharge present. Face and sinus: Sinuses nontender to palpation. Mouth: Normal oral and palatal mucosa present and moist mucous membranes noted. Throat: Tonsils normal. Uvula is midline. Posterior oropharynx with erythema and no exudates. Eyes: Appearance normal, both eyes and all related structures Neck: Normal visual inspection, full ROM. No lymphadenopathy noted. Respiratory: Clear to auscultation bilaterally. Normal respiratory effort, able to speak in complete sentences. No respiratory distress, not tachypneic, no tripod positioning and no use of accessory muscles. Cardiovascular: Regular rate and rhythm. Normal S1 and S2 Skin: No rashes or lesions noted Patient was informed and verbally consented to the use of an ambient scribe for clinic note documentation during this visit [facility] Medical History History of nephrolithiasis History of fracture of nasal bone Parkinsonism Gait instability Tardive dyskinesia Deviated nasal septum Trochanteric bursitis, right hip Osteopenia of right femoral neck COVID-19 vaccine administered Consumes a vegan diet Positive serology for Erlichiosis Impaired fasting glucose Tear of lateral meniscus of left knee Dysfunctional uterine bleeding Osteoarthritis, knee Bipolar disorder with depression Nephrolithiasis Menopause Hyperlipidemia Surgical History Status post arthroscopy of right shoulder Hx of ventral hernia repair H/O colonoscopy Status post shoulder surgery Hx of total knee arthroplasty H/O right knee surgery Family History Father No problems noted. Mother Alzheimer disease Maternal Grandmother Alzheimer disease Paternal Grandmother Stroke Brother Hyperlipemia Depression FH: mental illness Social History Are you a primary nurse care manager to a significant other at home: No Do you presently have visiting nurse or other home services: No Alcohol intake: never Patient Tobacco Use Status: Never used Tobacco e-Cigarette/Vaping Use: Never Used Advance Directives Date on File: 08/27/20 service: No Current occupational status: retired Cognitive needs: No Hearing needs: No Vision needs: Yes Review of Systems Const All systems reviewed & are unremarkable except as noted in HPI and below Physical Exam Vital Signs: Last Vital Signs Temp 98.4 F 05/25/25 08:09 Pulse 63 05/25/25 08:09 BP 122/68 05/25/25 08:09 Pulse Ox 97 05/25/25 08:09 Oxygen Delivery Method Room Air 05/25/25 08:09 BMI result Body Mass Index 25.5 Office Procedures Nebulizer Treatment Nebulizer Treatment [id number] RX initial, or Nebulizer Subsequent Treatment Office Meds ipratropium 0.5 mg-albuterol 3 mg (2.5 mg base)/3 mL nebulization guicho Performing Provider: Maria Teresa Cheema PA-C Performing Location: [facility] [place] [facility] Administered by: Maria Teresa Cheema PA-C on 05/25/25 08:31 Dose Route Admin Location Dispensed Lot Number Expiration Date [facility] Ballistician 3 mL inhalation 3 mL [id number] 11/03/26 34759-887-25 [employer] Results Reviewed Results Reviewed: Reviewed CXR in the office and normal chest Assessment & Plan Assessment & Plan (1) Cough: Code(s): R05.9 - Cough, unspecified Qualifiers: Cough type: acute Qualified Code(s): R05.1 - Acute cough Plan Most likely post covid vs CAP vs bronchitis vs URI vs bronchospasm Albuterol given in the office CXR done Plan - A chest X-ray is planned to rule out secondary bacterial pneumonia. - A breathing treatment will be administered to help alleviate the cough. - VSS, pt well appearing - Tessalon perles as needed for cough - prednisone burst for 5 days - albuterol as needed - follow up with PCP Orders: Orders XR chest 2V Today R05.9 - Cough, unspecified AMB Nebulizer Treatment Today R05.9 - Cough, unspecified Medications: New prednisone 40 mg (2 x 20 mg) PO DAILY 10 tabs 0RF 5 days benzonatate 100 mg PO bid-tid PRN 21 caps 0RF Cough 7 days albuterol sulfate 90 mcg/actuation 2 puffs inhalation Q6H PRN 8.5 grams 0RF shortness of breath or wheezing or cough Coding Level of Care Code Est Pt Level 4 (67020) Diagnoses Acute cough R05.1 Cough type: acute CPT Codes Nebulizer Treatment - Nebulizer Treatment, initial or subsequent: [id number] RX initial, or Nebulizer Subsequent Treatment ([id number])
[2025-05-25 08:09] VITALS: BP 122/68; PULSE 63; TEMP 36.9; O2SAT 97; BMI 25.5
== END 2025-05-25 09:53 | disposition home or self-care (01) ==
PROVIDERS: PCP Internal Medicine; Visit Provider Physician Assistant Medical
DX: R05.9 Cough, unspecified (principal); R05.1 Acute cough

== ENCOUNTER → 2025-05-25 08:46 | Outpatient (BNV) | payer MEDICARE, OTHER, SELFPAY | PROVIDERS: PCP Internal Medicine; Visit Provider Radiology Diagnostic Radiology | DX: R05.9 Cough, unspecified (principal) | CPT/HCPCS: 71046 ==

== ENCOUNTER 2025-05-28 09:17 | Outpatient (REF) | payer MEDICARE, OTHER, SELFPAY ==
[2025-05-28 14:15] LABS: Alanine Aminotransferase 19 U/L (0-31); Anion Gap 12 (12-20); Aspartate Amino Transferase 26 U/L (5-31); Blood Urea Nitrogen 17 mg/dL (9-16); Calcium 9.5 mg/dL (8.4-10.2); Carbon Dioxide 28 mmol/L (22-29); Chloride 106 mmol/L (96-108); Cholesterol 163 mg/dL (<200); Estimated Glomerular Filt Rate 58; HDL Cholesterol 57 mg/dL (>40); Potassium 3.9 mmol/L (3.3-5.1); Sodium 142 mmol/L (135-145); Triglycerides 56 mg/dL (<150)
== END 2025-05-28 09:18 | disposition home or self-care (01) ==
LOC: HO.HMGCLDS 09:17
PROVIDERS: PCP Internal Medicine; Visit Provider Internal Medicine
DX: M85.851 Other specified disorders of bone density and structure, right thigh (principal); R73.01 Impaired fasting glucose; E78.00 Pure hypercholesterolemia, unspecified; F31.9 Bipolar disorder, unspecified
CPT/HCPCS: 36415; 80048; 80061; 82306; 84450; 84460

== ENCOUNTER 2025-05-31 08:30 | Outpatient (AMB) | payer MEDICARE, OTHER, SELFPAY ==
[2025-05-31 08:33] VITALS: BP 122/80; PULSE 65; RESP 17; TEMP 36.9; O2SAT 95; BMI 25.5
--- NOTE | 2025-05-31 08:33 | MHC.PC.OV ---
Vital Signs 05/31/25 08:33 Height 5 ft 5 in Weight 153 lb BMI 25.5 BP 122/80 Blood Pressure Location Lt brachial Position Sitting Respiration 17 Pulse 65 Pulse Source Pulse Oximeter Temp 98.5 F Temp Source Oral Pulse Oximetry (%) 95 Oxygen Delivery Method Room Air Intake Visit Reasons: Annual PE/Provider on vacation~R/S Intake Note: Pt is here today for her PE: last mammogram 07/27/22, bone denisty scan 05/30/20, colonoscopy 09/25/20 Allergies doxycycline Allergy (Severe, Verified 05/31/25 09:25) Nausea and Vomiting meperidine Adverse Reaction (Severe, Verified 05/31/25 09:25) vomiting tramadol Adverse Reaction (Verified 05/31/25 09:) Hallucinations Medication List - Last Reconciled 05/31/25 by Sarah Lopez MD albuterol sulfate 90 mcg/actuation 2 puffs inhalation Q6H PRN azelastine 2 sprays intranasal BID PRN benzonatate 100 mg PO bid-tid PRN 7 days bupropion HCl XL 300 mg PO QAM cholecalciferol (vitamin D3) 25 mcg PO DAILY escitalopram oxalate (Lexapro) 1 tab daily PO daily; escitalopram oxalate 10 mg PO DAILY lamotrigine 100 mg PO QPM lamotrigine 200 mg PO QAM omeprazole 20 mg PO DAILY polyethylene glycol 3350 (Miralax) 17 grams PO DAILY PRN Tobacco use date assessed: 05/31/25 Last assessed Fall Risk: 05/31/25 Dental Screening Dental Screen Date: 05/31/25 HPI Annual PE/Provider on vacation~R/S HPI Details - The patient is a 69-year-old female presenting for her physical exam - COVID-19 infection: Contracted on May 02, with persistent cough treated with prednisone and Tessalon Perles. No fever or shortness of breath reported. - Allergic rhinitis: Persistent dry cough suspected to be allergic. Uses inhaler occasionally and takes Claritin, advised to switch to Zyrtec or Ivana. - Hypervitaminosis D: Vitamin D level elevated at 121.6 ng/mL, advised tohold off on vit D supplements . - Gastroesophageal reflux disease (GERD): Managed with daily Prilosec. - Osteopenia: Noted in right hip, advised to continue calcium and vitamin D, and engage in weight-bearing exercises. - Depression: Managed with bupropion, lamotrigine, and escitalopram. Previous tremors from other medications resolved after discontinuation. - History of elevated troponin levels: Extensive cardiac testing showed no abnormalities despite elevated troponin levels last year. - due for her breast cancer screening, last 1 done in 2021 with negative findings, bone denisty scan 05/30/20 with normal findings, and last colon cancer screening was done in 09/25/20 at [facility] by Dr Burton who recommended repeating another colonoscopy in 3 years due to poor prep. [facility] Medical History (Updated 05/31/25 @ 10:00 by Sarah Lopez MD) History of COVID-19 History of nephrolithiasis History of fracture of nasal bone Parkinsonism Gait instability Tardive dyskinesia Deviated nasal septum Trochanteric bursitis, right hip Osteopenia of right femoral neck COVID-19 vaccine administered Consumes a vegan diet Positive serology for Erlichiosis Impaired fasting glucose Tear of lateral meniscus of left knee Dysfunctional uterine bleeding Osteoarthritis, knee Bipolar disorder with depression Nephrolithiasis Menopause Hyperlipidemia Surgical History Status post arthroscopy of right shoulder Hx of ventral hernia repair H/O colonoscopy Status post shoulder surgery Hx of total knee arthroplasty H/O right knee surgery Family History Father No problems noted. Mother Alzheimer disease Maternal Grandmother Alzheimer disease Paternal Grandmother Stroke Brother Hyperlipemia Depression FH: mental illness Social History Are you a primary workforce investment act career manager to a significant other at home: No Do you presently have visiting nurse or other home services: No Alcohol intake: never Patient Tobacco Use Status: Never used Tobacco e-Cigarette/Vaping Use: Never Used Advance Directives Date on File: 08/27/20 service: No Current occupational status: retired Cognitive needs: No Hearing needs: No Vision needs: Yes Questionnaire PHQ-9 Over the last 2 weeks, how often have you been bothered by any of the following problems? 1. Little interest or pleasure in doing things: not at all 2. Feeling down, depressed, or hopeless: not at all 3. Trouble falling or staying asleep, or sleeping too much: not at all 4. Feeling tired or having little energy: not at all 5. Poor appetite or overeating: not at all 6. Feeling bad about yourself - or that you are a failure or have let yourself or your family down: not at all 7. Trouble concentrating on things, such as reading the newspaper or watching television: not at all 8. Moving or speaking so slowly that other people could have noticed. Or the opposite - being so fidgety or restless that you have been moving around a lot more than usual: not at all 9. Thoughts that you would be better off or of hurting yourself in some way: not at all Total score: 0 Depression Screening Interpretation: Negative Depression Screening Done: Yes 78761 - PHQ-9 Billing: Yes Source: Developed by Drs. Jamie Garrett, Shonda Watkins, Oumar Carrillo and colleagues, with an educational tarik from [employer]. Thrive Questionnaire Date Thrive assessed: 05/31/25 I am a: Patient What is your living situation today?: I have a steady place to live Within the past 12 months, did the food you bought not last and you didn't have the money to get more?: Never true Within the past 12 months, did you worry whether your food would run out before you got money to buy more?: Never true Do you have trouble paying for medicines?: No Do you have trouble getting transportation to medical appointments?: No Do you have trouble paying your heating and electricity bill?: No Do you have trouble taking care of your child, family member or friend?: No Do you have trouble with day-to-day activities such as bathing, preparing meals, shopping, managing finances, etc.?: No Are you currently unemployed and looking for a job?: No Are you interested in more education?: No Please select the resources that you would like help with: None Currently or been in a relationship where the following occur: No concerns reported THRIVE Score: 0 AUDIT C Alcohol Use Questionnaire (AUDIT-C) 1. How often do you have a drink containing alcohol?: Monthly or less 2. How many drinks containing alcohol do you have on a typical day when you are drinking?: 1 or 2 3. How often do you have six or more drinks on one occasion?: Never Total Score: 1 Score Reviewed/Action Taken: Yes LEANNE-7 AMB Questionnaire LEANNE-7 Date LEANNE - 7 assessed: 05/31/25 Feeling nervous, anxious, or on edge: 0 = Not at all Not being able to stop or control worryin = Not at all Worrying too much about different things: 0 = Not at all Trouble relaxin = Not at all Being so restless that it is hard to sit still: 0 = Not at all Becoming easily annoyed or irritable: 0 = Not at all Feeling afraid as if something awful might happen: 0 = Not at all Total LEANNE-7 score (0-4 normal; 5-9 mild; 10-14 moderate; 15-21 severe): 0 Source: Developed by Drs. Jamie Garrett, Shonda Wtakins, Oumar Carrillo and colleagues, with an educational tarik from [employer]. LEANNE-7 Assessment Billing LEANNE-7 Assessment Tool: LEANNE-7 Assessment 76557 Review of Systems Const All systems reviewed & are unremarkable except as noted in HPI and below Eyes Details: [facility] [place] [facility] Denies dizziness Card Denies chest pain, Denies chest pain at rest, Denies chest pain with activity, Denies rapid heart rate, Denies pedal edema, Denies edema, Denies leg edema, Denies lightheadedness, Denies palpitations, Denies dyspnea, Denies dyspnea on exertion and Denies orthopnea Resp Denies cough, Denies dyspnea and Denies dyspnea on exertion GI Denies hematochezia and Denies change in stool character Details: Dr. Porter ordered her screening mammogram, breast ultrasound and bone density scan scheduled for August 2025, last Pap smear was last year within normal limits per patient Musc Denies abnormal gait, Denies limited range of motion, Denies muscle cramps, Denies muscle weakness, Denies numbness, Denies radiating pain into limb, Denies stiffness and Denies tingling Skin/Breast Denies breast pain, Denies breast mass and Denies rash Neuro Denies abnormal gait, Denies dizziness, Denies numbness and Denies tingling Psych Reports no additional complaints Endo Denies palpitations Jorge/Lymph Reports no additional complaints Aller/Immun Reports no additional complaints Physical exam (Primary Care) Vital Signs: Last Vital Signs Temp 98.5 F 05/31/25 08:33 Pulse 65 05/31/25 08:33 Resp 17 05/31/25 08:33 BP 122/80 05/31/25 08:33 Pulse Ox 95 05/31/25 08:33 Oxygen Delivery Method Room Air 05/31/25 08:33 BMI result Body Mass Index 25.5 Tobacco/Smoking Status: Tobacco use Status Tobacco use date assessed 05/31/25 05/31/25 08:35 Patient Tobacco Use Status Never used Tobacco 05/31/25 08:35 e-Cigarette/Vaping Use Never Used 05/31/25 08:35 PHQ-9: PHQ-9 Score PHQ-9: Total score 0 05/31/25 10:00 Depression Screening Interpretation: Negative Thrive Assessment: Date of Thrive Assessment Date Thrive assessed 05/31/25 05/31/25 08:35 Currently or been in a relationship where the following occur: No concerns reported Advance Care Planning discussion: Completed/Scanned Date of discussion: 05/31/25 Who was present: patient Forms completed: Health Care Proxy and MOLST Time spent: 16-45 minutes Actual minutes spent: 2 Const General: healthy appearing, comfortable, no acute distress, alert and Physically active Nutritional Appearance: average body habitus Orientation/consciousness: patient oriented x3 HENMT Head: Yes normocephalic and Yes atraumatic Ears: hearing grossly normal bilaterally, external ears normal, TM's normal bilaterally and EAC's normal Eyes General: appearance normal, both eyes and all related structures Neck Neck: Yes full ROM, Yes no lymphadenopathy and Yes supple Thyroid: Thyroid normal Chest Chest palpation & inspection: normal inspection of the chest Breast/axilla inspection: normal inspection of the breasts and Other (Inverted nipple bilateral) Breast/axilla palpation: normal palpation of the breasts Resp Auscultation: clear to auscultation bilaterally Cardio Other: S1-S2 present regular rate and rhythm GI Inspection: Yes normal to inspection Palpation (GI): Soft to palpation, nontender, no guarding and no masses Auscultation: normal bowel sounds General: Yes no CVA tenderness and Yes deferred (Currently sees Dr. Porter) Back/Spine/Pelvis Back: no CVA tenderness and No back tenderness Skin General skin exam: no rashes or lesions noted Neuro General: patient oriented x3, tone normal, moves all extremities, Normal light touch and pain sensation, no focal motor deficits and CN's II-XI intact bilaterally Extrem General: Yes full ROM, Yes no joint enlargement, Yes no pedal edema, Yes no calf tenderness and Yes normal gait Psych Appearance: grossly normal and well kempt Mental Status: mental status grossly normal Speech and movement: Normal speech and movement present Affect: normal affect Attitude: cooperative Thought process: Normal thought process present Thought content: Normal thought content present Results Reviewed Results Reviewed: Name: Dina Steele Age/Sex: 69/F : 1955 Unit#: [id number] Attend Dr: Sarah Lopez MD Re05/28/25 Status: DEP REF Location: [facility] Disch: SPEC : [id number] ERIN: 05/28/25 STATUS: COMP REQ : [id number] RECD: 05/28/[address]: Sarah Lopez MD COMP: 05/28/25 ENTERED: 05/28/[address]: ORDERED: Met Prof Fast, AST, ALT, Lipid Panel, Vitamin D 25-OH Test Result Flag Reference Sodium 142 135-145 mmol/L Potassium 3.9 3.3-5.1 mmol/L CL 106 96-108 mmol/L CO2 28 22-29 mmol/L Gap 12 12-20 BUN 17 H 9-16 mg/dL Creat 0.96 0.5-1.4 mg/dL eGFR 58 Chronic Kidney Disease: Estimated GFR < 60 mL/min/1.73m2 Severe Kidney Disease: Estimated GFR < 15 mL/min/1.73m2 FBS 85 60-99 mg/dL CA 9.5 8.4-10.2 mg/dL AST (GOT) 26 5-31 U/L ALT (GPT) 19 0-31 U/L Triglyceride 56 <150 mg/dL Desirable Triglyceride: less than 150 mg/dL Borderline High Triglyceride 150-199 mg/dL High Triglyceride: 200-499 mg/dL Very High Triglyceride: greater than or equal to 5OO mg/dL Cholesterol 163 <200 mg/dL Desirable Cholesterol: less than 200 mg/dL Borderline High Cholesterol: 200-239 mg/dL High Cholesterol: greater than 239 mg/dL LDL Calculated 95 <100 mg/dL Desirable LDL: less than 100 mg/dL Near Optimal/Above Optimal LDL: 110-129 mg/dL Borderline High LDL: 130-159 mg/dL High LDL: 160-189 mg/dL Very High LDL: greater than or equal to 190 mg/dL HDL 57 >40 mg/dL Desirable HDL: greater than 40 mg/dL Note: This HDL assay may give artificially low results in patients with liver disease. Vitamin D 25-OH 121.6 >30 ng/mL Health Based Reference Values* < 20 ng/mL Deficient 20-30 ng/mL Insufficient > 30 ng/mL Sufficient Coding Level of Care Code Est Pt Prev Care >65y(35045) Diagnoses Bipolar disorder with depression F31.9 Pure hypercholesterolemia E78.00 Hyperlipidemia type: pure hypercholesterolemia Impaired fasting glucose R73.01 Osteopenia of right femoral neck M85.851 Parkinsonism G20.C Advance directive discussed with patient Z71.89 Annual visit for general adult medical examination with abnormal findings Z00.01 Persistent cough after viral respiratory infection R05.3; B94.8 Additional Codes LEANNE-7 Assessment Billing - LEANNE-7 Assessment Tool: LEANNE-7 Assessment 33321 ([id number]) PHQ-9 - 14999 - PHQ-9 Billing: Yes ([id number]) Vital Signs *Quality* - Advance Care Planning discussion: Completed/Scanned ([id number]) Vital Signs *Quality* - Time spent: 16-45 minutes ([id number]) Assessment & Plan Assessment & Plan (1) Bipolar disorder with depression: Comment: followed by Dr. Pricilla Neri Code(s): F31.9 - Bipolar disorder, unspecified Category: Medical Plan: Controlled on current treatment, followed by Psychiatry (2) Hyperlipidemia: Code(s): E78.5 - Hyperlipidemia, unspecified Category: Medical Qualifiers: Hyperlipidemia type: pure hypercholesterolemia Qualified Code(s): E78.00 - Pure hypercholesterolemia, unspecified Plan: Fasting lipids are within normal limits, continue adherence to healthy eating habits and regular exercise (3) Impaired fasting glucose: Code(s): R73.01 - Impaired fasting glucose Category: Medical Plan: Your previous fasting blood sugars were elevated above 100 mg/dL. Impaired glucose metabolism increases the risk for developing diabetes mellitus type 2, as well as heart attack and stroke later on. Lifestyle changes that promotes weight loss, healthy eating habits, and regular exercise are important, and can prevent the progression to diabetes (4) Osteopenia of right femoral neck: Comment: Seen on last bone density ordered by Dr. Porter, 05/30/2020 with a T-score of-1.5 right femoral neck normal in AP spine and right hip Code(s): M85.851 - Other specified disorders of bone density and structure, right thigh Category: Medical Plan: Currently has an appointment for repeat bone density scan ordered by Dr. Porter in August 2025 per patient (5) Parkinsonism: Comment: Seen by Dr. Santa, felt to be aripiprazole induced, improved with reduction in dose Code(s): G20.C - Parkinsonism, unspecified Category: Medical Plan: Dose of aripiprazole reduced by her neurologist, with improvement of symptoms (6) Advance directive discussed with patient: Code(s): Z71.89 - Other specified counseling Plan: Initiated the conversation about Advanced Directives. Advanced Directives help patients prepare for current and future decisions about their medical treatment and place of care. Discussed with patient that it is a process where a patients current condition and prognosis are reviewed, their wishes for information regarding their illness are elicited, and likely medical dilemmas are presented and options discussed. Healthcare proxy form and MOLST completed. These forms can be amended as needed, reviewed yearly and make changes as needed (7) Annual visit for general adult medical examination with abnormal findings: Code(s): Z00.01 - Encounter for general adult medical examination with abnormal findings Plan: Report of recent fasting labs reviewed discussed with patient. Recommended dental visit every 6 months and regular eye exams, at least every 2 years. Take adequate calcium in diet and vitamin-D 3 at 2000 IU per cap once a day, in addition to weight-bearing exercises to help maintain good muscle tone and weight control. Instructed to do self-breast exam, and currently being seen by Dr. Porter for her breast cancer screening, has an appointment already scheduled for her mammogram and bone density scan on August 2025 patient. Patient reminded that she is overdue for her colon cancer screening, patient states she will contact Dr. Burton at [facility] willing to schedule appointment. Date with her vaccines (8) Persistent cough after viral respiratory infection: Code(s): R05.3 - Chronic cough; B94.8 - Sequelae of other specified infectious and parasitic diseases Plan: Likely post COVID cough versus allergic in etiology. Continue with benzonatate as needed, and continue with has Azelastine nasal spray
== END 2025-05-31 09:59 | disposition home or self-care (01) ==
LOC: HO.HMCC 08:30
PROVIDERS: PCP Internal Medicine; Visit Provider Internal Medicine
DX: Z00.00 Encounter for general adult medical examination without abnormal findings (principal); F31.9 Bipolar disorder, unspecified; G20.C Parkinsonism, unspecified; E78.00 Pure hypercholesterolemia, unspecified; R73.01 Impaired fasting glucose; M85.851 Other specified disorders of bone density and structure, right thigh; Z71.89 Other specified counseling; R05.3 Chronic cough; B94.8 Sequelae of other specified infectious and parasitic diseases

== ENCOUNTER → 2025-05-31 08:30 | Outpatient (BNVA) | payer MEDICARE, OTHER, SELFPAY | PROVIDERS: PCP Internal Medicine; Visit Provider Internal Medicine | DX: Z00.01 Encounter for general adult medical examination with abnormal findings (principal); F31.9 Bipolar disorder, unspecified; E78.00 Pure hypercholesterolemia, unspecified; R73.01 Impaired fasting glucose; M85.851 Other specified disorders of bone density and structure, right thigh; G20.C Parkinsonism, unspecified; R05.3 Chronic cough; B94.8 Sequelae of other specified infectious and parasitic diseases; Z71.89 Other specified counseling | CPT/HCPCS: 96127; 99397 ==

== ENCOUNTER 2025-06-20 08:17 | Outpatient (AMB) | payer MEDICARE, OTHER, SELFPAY ==
--- NOTE | 2025-06-20 08:40 | MHC.OFFVIS ---
Intake Visit Reasons: 4m follow up Allergies doxycycline Allergy (Severe, Verified 05/31/25 09:25) Nausea and Vomiting meperidine Adverse Reaction (Severe, Verified 05/31/25 09:25) vomiting tramadol Adverse Reaction (Verified 05/31/25 09:25) Hallucinations Medication List - Last Reconciled 06/20/25 by Irma Giraldo MD azelastine 2 sprays intranasal BID PRN bupropion HCl XL 300 mg PO QAM escitalopram oxalate (Lexapro) 1 tab daily PO daily; escitalopram oxalate 10 mg PO DAILY lamotrigine 100 mg PO QPM lamotrigine 200 mg PO QAM omeprazole 20 mg PO DAILY polyethylene glycol 3350 (Miralax) 17 grams PO DAILY PRN HPI Comments Details: She is off the Abilify since early May 2025 and reduced Welbutrin to 300mg. She feels much better. Tremors are almost gone . No functional limitations. No rigidity or bradylinesia. Stopped Austedo on 08/02/24 and feels a major improvement.??Tremor sof legs resolved. Her Sx of tremors hands, legs and whole body started around 5 yrs ago intermittently and got significantly worse in the last 6 months. No more shuffling when she walks and tripping and falling is much improved and resolved. No change in her speech or swallowing or cognitive abilities. She was started on Austedo about a year ago for presumed tardive dyskinesia around the mouth. Walking ave. 3 miles a day. COUNT INCLUDES THE [facility] Medical History (Updated 06/20/25 @ 08:43 by Irma Giraldo MD) History of COVID-19 History of nephrolithiasis History of fracture of nasal bone Parkinsonism Gait instability Tardive dyskinesia Deviated nasal septum Trochanteric bursitis, right hip Osteopenia of right femoral neck COVID-19 vaccine administered Consumes a vegan diet Positive serology for Erlichiosis Impaired fasting glucose Tear of lateral meniscus of left knee Dysfunctional uterine bleeding Osteoarthritis, knee Bipolar disorder with depression Nephrolithiasis Menopause Hyperlipidemia Surgical History Status post arthroscopy of right shoulder Hx of ventral hernia repair H/O colonoscopy Status post shoulder surgery Hx of total knee arthroplasty H/O right knee surgery Family History Father No problems noted. Mother Alzheimer disease Maternal Grandmother Alzheimer disease Paternal Grandmother Stroke Brother Hyperlipemia Depression FH: mental illness Social History Are you a primary director of healthcare systems to a significant other at home: No Do you presently have visiting nurse or other home services: No Alcohol intake: never Patient Tobacco Use Status: Never used Tobacco e-Cigarette/Vaping Use: Never Used Advance Directives Date on File: 08/27/20 service: No Current occupational status: retired Cognitive needs: No Hearing needs: No Vision needs: Yes Review of Systems Const Details: Sleep:? Difficulty getting to sleepdenies.? Difficulty maintaining sleepdenies?.? Urge to move legsadmits.? Teeth grindingadmits.? Shouting or Kicking during sleepadmits.? Abnormal behavior during sleepadmits.? Excessive sleepadmits.? Snoringdenies.? Daytime sleepinessdenies. ???General/Constitutional:? Change in appetitedenies.? Chillsdenies.? Fatigueadmits.? Feverdenies.? Weight gainadmits.? Weight lossdenies. ???Ophthalmologic:? Blurred visiondenies.? Diminished visual acuitydenies. ???ENT:? Stuffinessadmits.? Decreased hearingdenies.? Dry mouthdenies.? Ear paindenies.? Nosebleeddenies.? Ringing in the earsdenies.? Sinus paindenies.? Sore throatdenies.? Swollen glandsdenies. ???Endocrine:? Cold intolerancedenies.? Excessive thirstdenies.? Frequent urinationdenies.? Heat intolerancedenies. ???Respiratory:? Shortness of breathdenies.? Chest paindenies.? Coughdenies. ???Breast:? Breast lumpdenies.? Nipple dischargedenies. ???Cardiovascular:? Chest pain at restdenies.? Chest pain with exertiondenies.? Claudicationdenies.? Dizzinessdenies.? Fluid accumulation in the legsdenies.? Irregular heartbeatdenies.? Palpitationsdenies. ???Gastrointestinal:? Abdominal paindenies.? Constipationadmits.? Diarrheadenies.? Difficulty swallowingdenies.? Heartburnadmits.? Nauseadenies.? Rectal bleedingdenies. ???Hematology:? Easy bruisingadmits.? Prolonged bleedingdenies. ???Genitourinary:? Frequent urinationdenies.? Urgencyadmits.? Incontinencedenies.? Erectile Dysfunctiondenies. ???Musculoskeletal:? Neck paindenies.? Back paindenies.? Muscle achesdenies.? Painful jointsdenies.? Sciaticadenies.? Weaknessdenies. ???Podiatric:? Difficulty walkingdenies.? Foot numbnessdenies. ???Neurologic:? Difficulty swallowingadmits.? Balance difficultyadmits.? Coordinationnormal.? Difficulty speakingdenies.? Dizzinessdenies.? Faintingdenies.? Gait abnormalitydenies.? Headacheadmits.? Loss of strengthdenies.? Loss of use of extremitydenies.? Low back paindenies.? Memory lossadmits.? Seizuresdenies.? Ticsdenies.? Tingling/Numbnessdenies.? Transient loss of visiondenies.? TremorHands and legs. ???Psychiatric:? Anxietydenies.? Auditory/visual hallucinationsdenies.? Delusionsdenies.? Depressed moodadmits.? Stressorsadmits.? Substance abusedenies.? Suicidal thoughtsdenies. Physical Exam Neuro Other: Neurological: Abnormal neurological findings:??Tremors of the lower extremities and intermittently hands L>R. ?improved? arm swing on walking. No rigidity or cogwheeling.?.?Mental Status:??alert and oriented X 3,?Normal attention, orientation, memory and affect.?Cranial Nerves:??Pupils are equal, round and reactive to light. Fundoscopy shows normal disc bilaterally. External occular muscles are intact. Visual rose are full, no ptosis. Face is symmetrical, no facial weakness or droop. Facial sensations are normal. Tongue protrudes in midline. Palate elevates symmetrically. Shoulder shrugging is normal..?Motor Examination:??Normal muscle tone, bulk and strength,?No atrophy or fasciculations,?No drift of the extended upper extremities,?Deep tendon reflexes are 2+?,?Plantars are flexor?.?Straight Leg Raising:??90 degrees.?Sensory Exam:??Normal light touch, temperature, pinprick, vibration and joint-position sensations?,?Rhomberg sign is absent.?Coordination:??no ataxia,?no titubation,?gtgnzw-ig-qhzl, gsgy-fblo-zbwy test and rapid alternating movements were normal.?Gait Exam:??Within normal limits.?Cerebellar Signs:??Rodwhs-zs-ibzy and uvyg-jy-hqln is normal,?no dysdiadochokinesia?.?Extrapyramidal System:??Tremors as above. No? rigidity but reduced? facial expressions,No bradykinesia, no bradyphrenia. Reduced? arm swing. normal?posture. No propulsion or retropulsion.?Speech:??Normal,?no dysphasia or dysarthria..? Mini Mental Status Exam: Level of Consciousness:??Alert.?Orientation:??Knows correct year, month, date, day and season,?Knows correct city, county and state. Knows correct location and floor.?Registration:??Able to register 3 objects.?Attention:??Serial 7's performed accurately.?Recall:??Able to recall 3 out of 3 objects.?Language:??Normal spontaneous speech, fluency, repetition,naming, comprehension, reading and writing.?Total Score:??30/30.? General Examination: GENERAL APPEARANCE:??normal,?in no acute distress.?HEAD:??normocephalic,?atraumatic.?EYES:??sclera non-icteric,?conjunctiva clear.?EARS:??auditory canal clear,?tympanic membrane intact, clear.?NOSE:??no lesions.?ORAL CAVITY:??gums normal,?mucosa moist,?no lesions.?THROAT:??clear.?NECK/THYROID:??no cervical lymphadenopathy,?thyroid normal,?neck supple, full range of motion,?no carotid bruit.?SKIN:??no rashes,?no significant birthmarks.?HEART:??S1, S2 normal,?no murmurs.?LUNGS:??clear anteriorly and posteriorly.?CHEST:??no gross rib deformity,?clear to auscultation.?BACK:??normal exam of spine.?EXTREMITIES:??no edema.?PERIPHERAL PULSES:??normal.?PSYCH:??alert, oriented,?cognitive function intact,?cooperative with exam.? Assessment & Plan Assessment & Plan (1) Parkinsonism: Comment: Seen by Dr. Santa, felt to be aripiprazole induced, improved with reduction in dose Code(s): G20.C - Parkinsonism, unspecified Category: Medical Plan: Continue current medications (2) Drug-induced parkinsonism: Code(s): G21.19 - Other drug induced secondary parkinsonism Category: Medical Plan: Continue current medications (3) Bipolar disorder with depression: Comment: followed by Dr. Pricilla Neri Code(s): F31.9 - Bipolar disorder, unspecified Category: Medical Plan Continue current medications Coding Level of Care Code Est Pt Level 4 (57695) Diagnoses Parkinsonism G20.C Drug-induced parkinsonism G21.19 Bipolar disorder with depression F31.9
== END 2025-06-20 10:02 | disposition home or self-care (01) ==
LOC: HO.HSM 08:18
PROVIDERS: PCP Internal Medicine; Referring Provider Internal Medicine; Visit Provider Psychiatry & Neurology Neurology
DX: G20.C Parkinsonism, unspecified (principal); G21.19 Other drug induced secondary parkinsonism; F31.9 Bipolar disorder, unspecified
CPT/HCPCS: 99214

== ENCOUNTER → 2025-06-20 08:17 | Outpatient (BNVA) | payer MEDICARE, OTHER, SELFPAY | PROVIDERS: PCP Internal Medicine; Referring Provider Internal Medicine; Visit Provider Psychiatry & Neurology Neurology | DX: G21.19 Other drug induced secondary parkinsonism (principal); F31.9 Bipolar disorder, unspecified | CPT/HCPCS: 99212 ==

== ENCOUNTER 2025-09-18 09:07 | Outpatient (AMB) | payer MEDICARE, OTHER, SELFPAY ==
--- NOTE | 2025-09-18 09:12 | A.OFFVIS_ITS ---
Intake Visit Reasons: memory issue Allergies doxycycline Allergy (Severe, Verified 05/31/25 09:25) Nausea and Vomiting meperidine Adverse Reaction (Severe, Verified 05/31/25 09:25) vomiting tramadol Adverse Reaction (Verified 05/31/25 09:25) Hallucinations Medication List - Last Reconciled 09/18/25 by Irma Giraldo MD azelastine 2 sprays intranasal BID PRN bupropion HCl XL 300 mg PO QAM escitalopram oxalate (Lexapro) 1 tab daily PO daily; escitalopram oxalate 10 mg PO DAILY lamotrigine 100 mg PO QPM lamotrigine 200 mg PO QAM omeprazole 20 mg PO DAILY polyethylene glycol 3350 (Miralax) 17 grams PO DAILY PRN HPI Comments Details: She is concerned about her short term memory that is getting worse. May have first noted it around 2019 when she retired. She was having processing problems. Has been slower in grasping things and takes longer to process information. Her 2 yr older sister 69yr sanchez sbeen diagnosed as MCI. Her mother and grandmother had dementia in their late 60s. She is off the Abilify since early May 2025 and reduced Welbutrin to 300mg. She feels much better. Tremors are almost gone . No functional limitations. No rigidity or bradylinesia. Stopped Austedo on 08/02/24 and feels a major improvement.??Tremors of legs resolved. Her Sx of tremors hands, legs and whole body started around 5 yrs ago intermittently and got significantly worse in the last 6 months. No more sh uffling when she walks and tripping and falling is much improved and resolved. No change in her speech or swallowing or cognitive abilities. Walking ave. 3 miles a day. [facility] Medical History (Updated 09/18/25 @ 09:23 by Irma Giraldo MD) History of COVID-19 History of nephrolithiasis History of fracture of nasal bone Parkinsonism Gait instability Tardive dyskinesia Deviated nasal septum Trochanteric bursitis, right hip Osteopenia of right femoral neck COVID-19 vaccine administered Consumes a vegan diet Positive serology for Erlichiosis Impaired fasting glucose Tear of lateral meniscus of left knee Dysfunctional uterine bleeding Osteoarthritis, knee Bipolar disorder with depression Nephrolithiasis Menopause Hyperlipidemia Surgical History Status post arthroscopy of right shoulder Hx of ventral hernia repair H/O colonoscopy Status post shoulder surgery Hx of total knee arthroplasty H/O right knee surgery Family History Father No problems noted. Mother Alzheimer disease Maternal Grandmother Alzheimer disease Paternal Grandmother Stroke Brother Hyperlipemia Depression FH: mental illness Social History Are you a primary director of health care marketing to a significant other at home: No Do you presently have visiting nurse or other home services: No Alcohol intake: never Patient Tobacco Use Status: Never used Tobacco e-Cigarette/Vaping Use: Never Used Advance Directives Date on File: 08/27/20 service: No Current occupational status: retired Cognitive needs: No Hearing needs: No Vision needs: Yes Review of Systems Const Details: Sleep:? Difficulty getting to sleepdenies.? Difficulty maintaining sleepdenies?.? Urge to move legsadmits.? Teeth grindingadmits.? Shouting or Kicking during sleep admits.? Abnormal behavior during sleepadmits.? Excessive sleepadmits.? Snoring denies.? Daytime sleepinessdenies. ???General/Constitutional:? Change in appetitedenies.? Chillsdenies.? Fatigueadmits.? Feverdenies.? Weight gainadmits.? Weight lossdenies. ???Ophthalmologic:? Blurred visiondenies.? Diminished visual acuitydenies. ???ENT:? Stuffinessadmits.? Decreased hearingdenies.? Dry mouthdenies.? Ear paindenies.? Nosebleeddenies.? Ringing in the earsdenies.? Sinus paindenies.? Sore throat denies.? Swollen glandsdenies. ???Endocrine:? Cold intolerancedenies.? Excessive thirstdenies.? Frequent urinationdenies.? Heat intolerancedenies. ???Respiratory:? Shortness of breathdenies.? Chest paindenies.? Coughdenies. ???Breast:? Breast lumpdenies.? Nipple dischargedenies. ???Cardiovascular:? Chest pain at restdenies.? Chest pain with exertiondenies.? Claudicationdenies .? Dizzinessdenies.? Fluid accumulation in the legsdenies.? Irregular heartbeat denies.? Palpitationsdenies. ???Gastrointestinal:? Abdominal paindenies.? Constipationadmits.? Diarrheadenies.? Difficulty swallowingdenies.? Heartburnadmits.? Nauseadenies.? Rectal bleedingdenies. ???Hematology:? Easy bruisingadmits.? Prolonged bleedingdenies. ???Genitourinary:? Frequent urinationdenies.? Urgencyadmits.? Incontinencedenies.? Erectile Dysfunctiondenies. ???Musculoskeletal:? Neck paindenies.? Back paindenies.? Muscle achesdenies.? Painful jointsdenies.? Sciaticadenies.? Weaknessdenies. ???Podiatric:? Difficulty walkingdenies.? Foot numbnessdenies. ???Neurologic:? Difficulty swallowingadmits.? Balance difficultyadmits.? Coordinationnormal.? Difficulty speakingdenies.? Dizzinessdenies.? Faintingdenies.? Gait abnormality denies.? Headacheadmits.? Loss of strengthdenies.? Loss of use of extremity denies.? Low back paindenies.? Memory lossadmits.? Seizuresdenies.? Ticsdenies.? Tingling/Numbnessdenies.? Transient loss of visiondenies.? TremorHands and legs. ???Psychiatric:? Anxietydenies.? Auditory/visual hallucinationsdenies.? Delusionsdenies.? Depressed moodadmits.? Stressorsadmits.? Substance abusedenies.? Suicidal thoughtsdenies. Physical Exam Const Orientation/consciousness: oriented to person, oriented to place, oriented to time and patient oriented x3 Neuro Other: Neurological: Abnormal neurological findings:??Tremors of the lower extremities and intermittently hands L>R. ?improved? arm swing on walking. No rigidity or cogwheeling.?.?Mental Status:??alert and oriented X 3,?Normal attention, orientation, memory and affect.?Cranial Nerves:??Pupils are equal, round and reactive to light. Fundoscopy shows normal disc bilaterally. External occular muscles are intact. Visual rose are full, no ptosis. Face is symmetrical, no facial weakness or droop. Facial sensations are normal. Tongue protrudes in midline. Palate elevates symmetrically. Shoulder shrugging is normal..?Motor Examination:??Normal muscle tone, bulk and strength,?No atrophy or fasciculations,?No drift of the extended upper extremities,?Deep tendon reflexes are 2+?,?Plantars are flexor?.?Straight Leg Raising:??90 degrees.?Sensory Exam:??Normal light touch, temperature, pinprick, vibration and joint-position sensations?,?Rhomberg sign is absent.?Coordination:??no ataxia,?no titubation,?dpecdp-tk-cwou, yvjd-csgj-ubwl test and rapid alternating movements were normal.?Gait Exam:??Within normal limits.?Cerebellar Signs:??Vhtarx-nv-iwse and oxsf-ft-dbbq is normal,?no dysdiadochokinesia?.?Extrapyramidal System:??Tremors as above. No? rigidity but reduced? facial expressions,No bradykinesia, no bradyphrenia. Reduced? arm swing. normal?posture. No propulsion or retropulsion.?Speech:??Normal,?no dysphasia or dysarthria..? Mini Mental Status Exam: Level of Consciousness:??Alert.?Orientation:??Knows correct year, month, date, day and season,?Knows correct city, county and state. Knows correct location and floor.?Registration:??Able to register 3 objects.?Attention:??Serial 7's performed accurately.?Recall:??Able to recall 2 out of 3 objects.?Language:??Normal spontaneous speech, fluency, repetition,naming, comprehension, reading and writing.?Total Score:??29/30.? General Examination: GENERAL APPEARANCE:??normal,?in no acute distress.?HEAD:??normocephalic,?atraumatic.?EYES:??sclera non- icteric,?conjunctiva clear.?EARS:??auditory canal clear,?tympanic membrane intact, clear.?NOSE:??no lesions.?ORAL CAVITY:??gums normal,?mucosa moist,?no lesions.?THROAT:??clear.?NECK/THYROID:??no cervical lymphadenopathy,?thyroid normal,?neck supple, full range of motion,?no carotid bruit.?SKIN:??no rashe s,?no significant birthmarks.?HEART:??S1, S2 normal,?no murmurs.?LUNGS:??clear anteriorly and posteriorly.?CHEST:??no gross rib deformity,?clear to auscultation.?BACK:??normal exam of spine.?EXTREMITIES:??no edema.?PERIPHERAL PULSES:??normal.?PSYCH:??alert, oriented,?cognitive function intact,?cooperative with exam.? General: oriented to person, oriented to place, oriented to time and patient oriented x3 Assessment & Plan Assessment & Plan (1) Drug-induced parkinsonism: Code(s): G21.19 - Other drug induced secondary parkinsonism Category: Medical Plan: Continue current medications (2) Bipolar disorder with depression: Comment: followed by Dr. Pricilla Neri Code(s): F31.9 - Bipolar disorder, unspecified Category: Medical (3) MCI (mild cognitive impairment) with memory loss: Code(s): G31.84 - Mild cognitive impairment of uncertain or unknown etiology Category: Medical Plan Continue current medications, Work up for MCI, labs, MRI, EEG Orders: Orders ABeta 42/40 p-tau 217 Eval Today G31.84 - Mild cognitive impairment of uncertain or unknown etiology TSH reflex Free T4 Today G31.84 - Mild cognitive impairment of uncertain or unknown etiology Vitamin B12 and Folate Today G31.84 - Mild cognitive impairment of uncertain or unknown etiology Basic Metabolic Panel Today G31.84 - Mild cognitive impairment of uncertain or unknown etiology EEG Routine Today G31.84 - Mild cognitive impairment of uncertain or unknown etiology MR head/brain wo con 4 Weeks G31.84 - Mild cognitive impairment of uncertain or unknown etiology Coding Level of Care Code Est Pt Level 4 (04595) Diagnoses Drug-induced parkinsonism G21.19 Bipolar disorder with depression F31.9 MCI (mild cognitive impairment) with memory loss G31.84
== END 2025-09-18 09:32 | disposition home or self-care (01) ==
LOC: HO.HSM 09:07
PROVIDERS: PCP Internal Medicine; Visit Provider Psychiatry & Neurology Neurology
DX: G21.19 Other drug induced secondary parkinsonism (principal); F31.9 Bipolar disorder, unspecified; G31.84 Mild cognitive impairment of uncertain or unknown etiology
CPT/HCPCS: 99214

== ENCOUNTER 2025-09-18 09:07 | Outpatient (REF) | payer MEDICARE, OTHER, SELFPAY ==
[2025-09-18 10:58] LABS: Anion Gap 11 (12-20); Blood Urea Nitrogen 20 mg/dL (9-16); Calcium 9.6 mg/dL (8.4-10.2); Carbon Dioxide 30 mmol/L (22-29); Chloride 106 mmol/L (96-108); Estimated Glomerular Filt Rate > 60; Potassium 4.2 mmol/L (3.3-5.1); Sodium 143 mmol/L (135-145)
[2025-09-18 11:20] LABS: Folate 16.3 ng/mL (> or = 4.0); Vitamin B12 589 pg/mL (200-900)
== END 2025-09-18 09:08 | disposition home or self-care (01) ==
LOC: HO.LAB 09:07
PROVIDERS: PCP Internal Medicine; Visit Provider Psychiatry & Neurology Neurology
DX: G21.19 Other drug induced secondary parkinsonism (principal); F31.89 Other bipolar disorder; G31.84 Mild cognitive impairment of uncertain or unknown etiology; Z79.899 Other long term (current) drug therapy
CPT/HCPCS: 36415; 80048; 82233; 82234; 82607; 82746; 84393; 84443; 99212

== ENCOUNTER 2025-10-01 12:39 | Outpatient (REF) | payer MEDICARE, OTHER, SELFPAY ==
--- NOTE | 2025-10-01 12:43 | EEG_ITS ---
History: H/O bipolar disorder with depression, nephrolithiasis, hyperlipidemia - Patient is concerned that short term memory is getting worse. She has been slower in grasping things and takes longer to process information. Medication: azelastine, bupropion, escitalopram oxalate, lamotrigine, omeprazole, polyethylene glycol Technical Description Photic Stimulation: completed Hyperventilation: performed - good effort Behavioral State: pleasant State of Consciousness: awake Skull Defect: none Sedation: none Handedness: right Duration: 32 min 35 sec Crib Clerk Comments: Last Meal: 10/01/25 10 am Time / date of last symptom: daily, currently Description: MTDD
== END 2025-10-01 12:40 | disposition home or self-care (01) ==
LOC: HO.NEURO 12:39
PROVIDERS: PCP Internal Medicine; Visit Provider Psychiatry & Neurology Neurology
DX: G31.84 Mild cognitive impairment of uncertain or unknown etiology (principal)
CPT/HCPCS: 95816

== ENCOUNTER → 2025-10-01 12:43 | Outpatient (BNV) | payer MEDICARE, OTHER, SELFPAY | PROVIDERS: PCP Internal Medicine; Visit Provider Psychiatry & Neurology Neurology | DX: R94.01 Abnormal electroencephalogram [EEG] (principal); G31.84 Mild cognitive impairment of uncertain or unknown etiology | CPT/HCPCS: 95816 ==